=== PATIENT | female | born 1955 | race Caucasian/White ===

== ENCOUNTER 2020-04-06 18:50 | Inpatient (IN) | payer MEDICAID, MEDICARE, OTHER, SELFPAY ==
[~2020-04-06] VITALS: Ht 170.2 cm; Wt 96.2 kg
[2020-04-06] MEDS ORDERED: ONDANSETRON 2MG/ML, 2ML IVPush ONE (19:30)
[2020-04-06] MEDS ORDERED: MORPHINE SULFATE 4 MG/ML, 1ML ONE (19:30)
[2020-04-06] MEDS ORDERED: MORPHINE SULFATE 4 MG/ML, 1ML IVPush ONE (19:30)
[2020-04-06] MEDS ORDERED: ONDANSETRON 2MG/ML, 2ML ONE (19:31)
--- NOTE | 2020-04-06 19:47 | NUR ---
BREAK RN: PT. MEDICATED PER JUL. PT. ACTIVLY VOMITING DESPITE ANTI-NAUSEA MEDS. PT. REPORTS 03/11 CENTRAL ABD PAIN. SPO2 AND B/P MONITORS IN PLACE. AWARE OF PLAN FOR CT AND UA.
--- NOTE | 2020-04-06 19:59 | NUR ---
REPORT BACK TO DANNY ZAPIEN TO REASSUME CARE OF PT.
--- NOTE | 2020-04-06 20:20 | NUR ---
PT AMBULATED TO RESTROOM WITH STEADY AND SHUFFLING GAIT. ALL QUESTIONS ANSWERED AT THIS TIME
--- NOTE | 2020-04-06 20:48 | NUR ---
REPORT GIVEN TO RAJIV DELGADO.
[2020-04-06 20:56] LABS: MEAN CORPUSCULAR HGB CONC 32.4 g/dL (32.4-35.8); MEAN PLATELET VOLUME 10.9 fL (7.4-10.4); PLATELET COUNT 254 x10^3/uL (130-400); RED BLOOD COUNT 5.36 x10^6/uL (3.82-5.3)
--- NOTE | 2020-04-06 20:58 | NUR ---
Report rec'd, patient resting at this time, offers no complaints
[2020-04-06 20:59] LABS: ALANINE AMINOTRANSFERASE 98 U/L (12-78); ALBUMIN 4.4 g/dL (3.4-5.0); ANION GAP 6 mmol/L (5-15); CALCIUM 9.3 mg/dL (8.5-10.1); CHLORIDE 106 mmol/L (98-107); CREATININE 1.12 mg/dL (0.55-1.02)
[2020-04-06 21:02] LABS: ALKALINE PHOSPHATASE 135 U/L (45-117); BILIRUBIN,TOTAL 2.5 mg/dL (0.2-1.0); TOTAL PROTEIN 7.9 g/dL (6.4-8.2)
[2020-04-06 21:03] LABS: MICROSCOPIC INDICATED
--- NOTE | 2020-04-06 21:09 | NUR ---
CT PENDING CREATINE
[2020-04-06] MEDS ORDERED: SODIUM CHLORIDE 0.9% 1,000ML IVBOLUS ONE (21:30)
[2020-04-06] MEDS ORDERED: PROCHLORPERAZINE 5 MG/ML, 2ML ONE (21:35)
[2020-04-06] MEDS ORDERED: HYDROmorphone 1 MG/ML, 1ML INJ ONE (21:35)
[2020-04-06 21:37] LABS: MD YES
[2020-04-06 21:40] LABS: BAND#(MANUAL) 1.51 x10^3/uL; BANDS%(MANUAL) 7 % (0-7); BASOS#(MANUAL) 0.22 x10^3/uL (0-0.1); BASOS% (MANUAL) 1 % (0-1); LYMPH#(MANUAL) 0.65 x10^3/uL (1-3.4); LYMPHS% (MANUAL) 3 % (22-44); MONOS#(MANUAL) 1.08 x10^3/uL (0.3-2.7); MONOS% (MANUAL) 5 % (2-9); REACTIVE LYMPHS # (MANUAL) 0.22 x10^3/uL (0-0); REACTIVE LYMPHS % (MANUAL) 1 % (0-0); SEG#(MANUAL) 17.93 x10^3/uL (1.8-6.8); SEGS% (MANUAL) 83 % (42-75)
[2020-04-06 21:41] LABS: ANISOCYTOSIS 1+
[2020-04-06 21:43] LABS: <PLATELET ESTIMATE> ADEQUATE; LARGE PLATELETS 1+; OVALOCYTES 1+
--- NOTE | 2020-04-06 21:50 | NUR ---
Daughter contact nishant- Anjelica Piper [phone]
[2020-04-06] MEDS ORDERED: HYDROmorphone 1 MG/ML, 1ML INJ IV ONE (22:00)
[2020-04-06] MEDS ORDERED: PROCHLORPERAZINE 5 MG/ML, 2ML IVPush ONE (22:00)
[2020-04-06] MEDS ORDERED: PLEASE ENTER ALLERGIES MC SCH (22:00)
[2020-04-06] MEDS ORDERED: OMNIPAQUE 350 MG/ML, 100ML BOTTLE ONE (22:18)
[2020-04-06] MEDS ORDERED: PIPERACILLIN/TAZO/PMX 3.375GM 50 ML ONE (22:42)
[2020-04-06] MEDS ORDERED: PIPERACILLIN/TAZO/PMX 3.375GM 50 ML IVPB ONE (23:00)
[2020-04-07] VITALS (12 sets, daily range): BP systolic 95–183; BP diastolic 68–124
[2020-04-07] MEDS ORDERED: MORPHINE SULFATE 4 MG/ML, 1ML IVPush PRN
[2020-04-07] MEDS ORDERED: SODIUM CHLORIDE 0.9% 1,000 ML IV ONE
[2020-04-07] MEDS ORDERED: ONDANSETRON 2MG/ML, 2ML IVPush PRN ×2 (00:30)
[2020-04-07] MEDS ORDERED: HYDROcodone/APAP 5/325 TABLET PO PRN (00:30)
[2020-04-07] MEDS ORDERED: IBUPROFEN 600 MG TABLET PO PRN (00:30)
[2020-04-07] MEDS ORDERED: DOCUSATE 100 MG CAPSULE PO PRN (00:30)
--- NOTE | 2020-04-07 00:35 | NUR ---
Daughter called and updated rgarding patients being admitted
[2020-04-07] MEDS: SODIUM CHLORIDE 0.9% 1,000 ML IV SCH ×2 (01:14→10:34)
[2020-04-07] MEDS: HEPARIN 5,000 UNITS/ML, 1ML SQ SCH ×3 (01:14→16:16)
[2020-04-07] MEDS: morphine SULFATE 10 MG/ML, 1ML IVPush PRN ×4 (01:14→20:20)
[2020-04-07] MEDS: ENALAPRILAT 1.25 MG/ML, 2ML IVPush PRN ×2 (01:30→02:09)
[2020-04-07] MEDS: CIPROFLOXACIN/DEXT 200MG PMX 100 ML IVPB SCH ×2 (02:10→13:26)
[2020-04-07] MEDS: METRONIDAZOLE PMX 500MG/100ML 100 ML IV SCH ×2 (03:22→11:06)
[2020-04-07] MEDS ORDERED: LABETALOL 5MG/ML, 20ML IVPush PRN (04:00)
[2020-04-07] MEDS: MEROPENEM 1 GM in SODIUM CHLORIDE 0.9% 100 ML IV SCH ×2 (15:30→23:10)
[2020-04-08] MEDS: HEPARIN 5,000 UNITS/ML, 1ML SQ SCH ×3 (00:56→16:30)
[2020-04-08] MEDS: morphine SULFATE 10 MG/ML, 1ML IVPush PRN ×3 (01:15→11:06)
[2020-04-08 02:09] LABS: BASOPHILS % (AUTO) 0 % (0-1); EOSINOPHILS % (AUTO) 1 % (1-7); LYMPHOCYTES % (AUTO) 2 % (22-44); MEAN CORPUSCULAR HEMOGLOBIN 31.5 pg (27.0-34.8); MEAN CORPUSCULAR HGB CONC 32.8 g/dL (32.4-35.8); MEAN PLATELET VOLUME 10.8 fL (7.4-10.4); MONOCYTES % (AUTO) 6 % (2-9); NEUTROPHILS % (AUTO) 91 % (42-75); PLATELET COUNT 212 x10^3/uL (130-400); RED BLOOD COUNT 5.18 x10^6/uL (3.82-5.3); RED CELL DISTRIBUTION WIDTH 13.7 % (9.6-15.2)
[2020-04-08 02:16] LABS: ALANINE AMINOTRANSFERASE 113 U/L (12-78); ALBUMIN 3.2 g/dL (3.4-5.0); ANION GAP 9 mmol/L (5-15); CALCIUM 7.5 mg/dL (8.5-10.1); CHLORIDE 114 mmol/L (98-107); CREATININE 2.93 mg/dL (0.55-1.02); TRIGLYCERIDES 139 mg/dL (50-200); VLDL CHOLESTEROL 28 mg/dL (0-25)
[2020-04-08 02:18] LABS: ALKALINE PHOSPHATASE 125 U/L (45-117); BILIRUBIN,TOTAL 2.1 mg/dL (0.2-1.0); HDL CHOLESTEROL (DIRECT) 45 mg/dL (40-60); TOTAL PROTEIN 6.6 g/dL (6.4-8.2)
[2020-04-08 02:20] LABS: MD SCAN
[2020-04-08 02:44] LABS: CHOL/HDL RATIO 2.5; LDL/HDL RATIO 0.9 (0.5-3.0)
[2020-04-08 02:45] LABS: CHOLESTEROL, TOTAL 114 mg/dL (140-239); HDL CHOL % 39 % (28-40); LDL CHOLESTEROL,CALCULATED 41 mg/dL (54-169)
[2020-04-08] MEDS ORDERED: PANTOPRAZOLE 40 MG IV IVPush ONE (03:00)
[2020-04-08] MEDS: SODIUM BICARBONATE 8.4% 150 MEQ in DEXTROSE 5% 1,000 ML IV SCH ×2 (03:51→15:46)
[2020-04-08] MEDS: MEROPENEM 1 GM in SODIUM CHLORIDE 0.9% 100 ML IV SCH ×2 (06:28→18:31)
[2020-04-08 08:04] LABS: ANION GAP 10 mmol/L (5-15); CALCIUM 7.4 mg/dL (8.5-10.1); CHLORIDE 111 mmol/L (98-107)
[2020-04-08 08:06] LABS: CREATININE 3.53 mg/dL (0.55-1.02)
[2020-04-08] MEDS ORDERED: PANTOPRAZOLE 40 MG IV IVPush SCH (09:00)
[2020-04-08] MEDS ORDERED: SODIUM CHLORIDE 0.9% 1,000ML IVBOLUS ONE ×2 (09:00→09:30)
[2020-04-08] MEDS ORDERED: LIDOCAINE 1%, 20ML ONE (11:55)
[2020-04-08] MEDS ORDERED: PROPOFOL 10 MG/ML, 20ML ONE (11:56)
[2020-04-08] MEDS ORDERED: ROCURONIUM 10MG/ML,5ML ONE ×3 (11:56→17:33)
[2020-04-08] MEDS ORDERED: PROPOFOL 100 ML IV ONE (11:59)
[2020-04-08] MEDS ORDERED: NOREPINEPHRINE 1 MG/ML, 4ML ONE (12:09)
[2020-04-08] MEDS ORDERED: GLUCAGON 1 MG IM PRN (12:30)
[2020-04-08] MEDS ORDERED: PROPOFOL 100 ML IV PRN (12:30)
[2020-04-08] MEDS ORDERED: DEXTROSE 4 GM TAB.CHEW PO PRN (12:30)
[2020-04-08] MEDS ORDERED: BISACODYL 10 MG SUPP PR PRN (12:30)
[2020-04-08] MEDS ORDERED: NOREPINEPHRINE 8 MG in SODIUM CHLORIDE 0.9% 242 ML IV PRN (12:30)
[2020-04-08] MEDS ORDERED: LACTULOSE 20 GM/30 ML UDC NG PRN (12:30)
[2020-04-08] MEDS ORDERED: SENNA 176 MG/5 ML ORAL SOL NG PRN ×2 (12:30)
[2020-04-08] MEDS ORDERED: DEXTROSE 50%, 50ML SYRINGE IVPush PRN (12:30)
[2020-04-08] MEDS ORDERED: FENTANYL PF 100 MCG/2ML IVPush PRN (12:30)
[2020-04-08] MEDS ORDERED: LIDOCAINE-MPF 1%, 2ML ENDO PRN (12:30)
[2020-04-08] MEDS ORDERED: PHARMACY MAY ADJ FOR RENAL FX MC SCH (12:30)
[2020-04-08] MEDS ORDERED: DOCUSATE 50 MG/5 ML, 10ML UDC NG PRN (13:00)
[2020-04-08] MEDS: FENTANYL PF 1,000 MCG in SODIUM CHLORIDE 0.9% 80 ML IV PRN (13:20)
[2020-04-08] MEDS: PANTOPRAZOLE 40 MG IV IV SCH (13:30)
[2020-04-08] MEDS: NOREPINEPHRINE 8 MG in SODIUM CHLORIDE 0.9% 242 ML IV PRN (15:19)
[2020-04-08] MEDS ORDERED: CALCIUM GLUCONATE IV ONE (15:30)
[2020-04-08] MEDS ORDERED: CALCIUM GLUCONATE 4.6 MEQ/10 ML IVPush ONE (16:00)
[2020-04-08] MEDS ORDERED: MIDAZOLAM 1 MG/ML, 2ML ONE ×2 (16:01→17:45)
[2020-04-08] MEDS ORDERED: FENTANYL PF 100 MCG/2ML ONE (16:24)
[2020-04-08] MEDS ORDERED: SODIUM BICARBONATE 1 MEQ/ML, 50ML VIAL ONE (17:11)
[2020-04-08] MEDS ORDERED: CALCIUM CHLORIDE 10%, 10ML SYR ONE (17:36)
[2020-04-08 18:39] LABS: BASOPHILS % (AUTO) 0 % (0-1); EOSINOPHILS % (AUTO) 0 % (1-7); LYMPHOCYTES % (AUTO) 4 % (22-44); MEAN CORPUSCULAR HEMOGLOBIN 31.5 pg (27.0-34.8); MEAN CORPUSCULAR HGB CONC 32.5 g/dL (32.4-35.8); MEAN PLATELET VOLUME 10.5 fL (7.4-10.4); MONOCYTES % (AUTO) 7 % (2-9); NEUTROPHILS % (AUTO) 89 % (42-75); PLATELET COUNT 183 x10^3/uL (130-400); RED BLOOD COUNT 4.83 x10^6/uL (3.82-5.3); RED CELL DISTRIBUTION WIDTH 13.9 % (9.6-15.2)
[2020-04-08 18:40] LABS: MD NO
[2020-04-08 18:51] LABS: ALANINE AMINOTRANSFERASE 113 U/L (12-78); ALBUMIN 2.3 g/dL (3.4-5.0); ANION GAP 10 mmol/L (5-15); CALCIUM 7.5 mg/dL (8.5-10.1); CHLORIDE 115 mmol/L (98-107); CREATININE 3.98 mg/dL (0.55-1.02)
[2020-04-08 18:54] LABS: ALKALINE PHOSPHATASE 94 U/L (45-117); BILIRUBIN,TOTAL 1.3 mg/dL (0.2-1.0); TOTAL PROTEIN 5.2 g/dL (6.4-8.2)
[2020-04-08] MEDS: VASOPRESSIN 20 UNIT in SODIUM CHLORIDE 0.9% 99 ML IV PRN (21:30)
[2020-04-08] MEDS: SODIUM CHLORIDE FLUSH 10ML SYR IVF SCH (21:31)
[2020-04-08] MEDS: DEXMEDETOMIDINE 400 MCG in SODIUM CHLORIDE 0.9% 96 ML IV PRN (22:58)
[2020-04-09] MEDS: HEPARIN 5,000 UNITS/ML, 1ML SQ SCH ×3 (00:53→16:40)
[2020-04-09] MEDS: FENTANYL PF 1,000 MCG in SODIUM CHLORIDE 0.9% 80 ML IV PRN ×3 (02:49→20:38)
[2020-04-09] MEDS: DEXMEDETOMIDINE 400 MCG in SODIUM CHLORIDE 0.9% 96 ML IV PRN ×5 (03:00→20:38)
[2020-04-09 04:31] LABS: ALANINE AMINOTRANSFERASE 114 U/L (12-78); ALBUMIN 2.3 g/dL (3.4-5.0); ANION GAP 10 mmol/L (5-15); BILIRUBIN, DIRECT 0.8 mg/dL (0.1-0.2); CALCIUM 6.7 mg/dL (8.5-10.1); CHLORIDE 111 mmol/L (98-107); CREATININE 4.77 mg/dL (0.55-1.02); MEAN CORPUSCULAR HEMOGLOBIN 31.5 pg (27.0-34.8); MEAN CORPUSCULAR HGB CONC 32.7 g/dL (32.4-35.8); PLATELET COUNT 177 x10^3/uL (130-400); RED BLOOD COUNT 4.89 x10^6/uL (3.82-5.3); RED CELL DISTRIBUTION WIDTH 13.9 % (9.6-15.2)
[2020-04-09 04:33] LABS: ALKALINE PHOSPHATASE 96 U/L (45-117); BILIRUBIN,INDIRECT 0.5 mg/dL (0.0-2.0); BILIRUBIN,TOTAL 1.3 mg/dL (0.2-1.0); TOTAL PROTEIN 5.4 g/dL (6.4-8.2)
[2020-04-09] MEDS: NOREPINEPHRINE 8 MG in SODIUM CHLORIDE 0.9% 242 ML IV PRN ×2 (04:36→11:44)
[2020-04-09] MEDS: VASOPRESSIN 20 UNIT in SODIUM CHLORIDE 0.9% 99 ML IV PRN ×2 (04:36→12:09)
[2020-04-09 05:39] LABS: MD YES
[2020-04-09 05:41] LABS: <PLATELET ESTIMATE> ADEQUATE; BAND#(MANUAL) 2.62 x10^3/uL; BANDS%(MANUAL) 22 % (0-7); LARGE PLATELETS 1+; LYMPH#(MANUAL) 0.71 x10^3/uL (1-3.4); LYMPHS% (MANUAL) 6 % (22-44); MONOS#(MANUAL) 0.95 x10^3/uL (0.3-2.7); MONOS% (MANUAL) 8 % (2-9); SEG#(MANUAL) 7.62 x10^3/uL (1.8-6.8); SEGS% (MANUAL) 64 % (42-75)
[2020-04-09] MEDS: MEROPENEM 1 GM in SODIUM CHLORIDE 0.9% 100 ML IV SCH ×2 (05:56→17:25)
[2020-04-09 06:17] LABS: <RBC MORPHOLOGY> NORMAL
[2020-04-09] MEDS ORDERED: CALCIUM CHLORIDE 13.6 MEQ in SODIUM CHLORIDE 0.9% 100 ML IV ONE (06:30)
[2020-04-09] MEDS ORDERED: DILTIAZEM 5 MG/ML, 5ML IVPush ONE ×2 (07:00→15:00)
[2020-04-09] MEDS ORDERED: ONDANSETRON 2MG/ML, 2ML IV PRN (08:00)
[2020-04-09] MEDS: PANTOPRAZOLE 40 MG IV IV SCH (08:50)
[2020-04-09] MEDS: SODIUM CHLORIDE FLUSH 10ML SYR IVF SCH ×2 (08:51→19:36)
[2020-04-09] MEDS ORDERED: LACTATED RINGERS 500 ML IVBOLUS ONE (09:00)
[2020-04-09] MEDS ORDERED: ADENOSINE 6 MG/2 ML IVPush ONE ×2 (10:30→11:00)
[2020-04-09] MEDS: INSULIN LISPRO 100 UNITS/ML, PEN SQ-INSULIN SCH ×3 (11:00→19:43)
[2020-04-09] MEDS ORDERED: ACETAMINOPHEN 650 MG SUPP ONE (12:19)
[2020-04-09] MEDS: ACETAMINOPHEN 650 MG SUPP PR PRN ×2 (12:20→19:36)
[2020-04-09] MEDS ORDERED: METOPROLOL 1 MG/ML, 5ML IVPush STA (15:43)
[2020-04-09] MEDS: PHENYLEPHRINE 50 MG in SODIUM CHLORIDE 0.9% 245 ML IV PRN (16:04)
[2020-04-10] MEDS: PHENYLEPHRINE 50 MG in SODIUM CHLORIDE 0.9% 245 ML IV PRN ×2 (01:16→13:19)
[2020-04-10] MEDS: HEPARIN 5,000 UNITS/ML, 1ML SQ SCH ×3 (01:19→16:51)
[2020-04-10] MEDS: DEXMEDETOMIDINE 400 MCG in SODIUM CHLORIDE 0.9% 96 ML IV PRN ×4 (01:40→18:22)
[2020-04-10] MEDS: VASOPRESSIN 20 UNIT in SODIUM CHLORIDE 0.9% 99 ML IV PRN ×2 (03:19→15:30)
[2020-04-10 04:00] VITALS: BP 96/52
[2020-04-10 04:16] LABS: MEAN CORPUSCULAR HEMOGLOBIN 31.6 pg (27.0-34.8); MEAN CORPUSCULAR HGB CONC 32.6 g/dL (32.4-35.8); MEAN PLATELET VOLUME 10.7 fL (7.4-10.4); PLATELET COUNT 162 x10^3/uL (130-400); RED BLOOD COUNT 4.58 x10^6/uL (3.82-5.3); RED CELL DISTRIBUTION WIDTH 14.2 % (9.6-15.2)
[2020-04-10 04:26] LABS: CALCIUM 7.1 mg/dL (8.5-10.1); CHLORIDE 116 mmol/L (98-107)
[2020-04-10 04:32] LABS: ANION GAP 9 mmol/L (5-15); CREATININE 4.83 mg/dL (0.55-1.02)
[2020-04-10] MEDS: ACETAMINOPHEN 650 MG SUPP PR PRN ×3 (05:01→16:51)
[2020-04-10] MEDS: MEROPENEM 1 GM in SODIUM CHLORIDE 0.9% 100 ML IV SCH (05:01)
[2020-04-10] MEDS: INSULIN LISPRO 100 UNITS/ML, PEN SQ-INSULIN SCH ×4 (05:02→21:00)
[2020-04-10 05:46] LABS: MD YES
[2020-04-10 05:50] LABS: BAND#(MANUAL) 0.85 x10^3/uL; BANDS%(MANUAL) 6 % (0-7); LYMPH#(MANUAL) 0.42 x10^3/uL (1-3.4); LYMPHS% (MANUAL) 3 % (22-44); METAMYELOCYTES# (MANUAL) 0.42 x10^3/uL (0-0); METAMYELOCYTES% (MANUAL) 3 % (0-1); MONOS% (MANUAL) 17 % (2-9); SEG#(MANUAL) 10.01 x10^3/uL (1.8-6.8); SEGS% (MANUAL) 71 % (42-75)
[2020-04-10 05:51] LABS: <PLATELET ESTIMATE> ADEQUATE; LARGE PLATELETS 1+
[2020-04-10 05:52] LABS: PMNS WITH VACUOLES 1+; POLYCHROMASIA 1+
[2020-04-10] MEDS: FENTANYL PF 1,000 MCG in SODIUM CHLORIDE 0.9% 80 ML IV PRN ×3 (06:31→18:22)
[2020-04-10] MEDS: PANTOPRAZOLE 40 MG IV IV SCH (08:40)
[2020-04-10] MEDS: SODIUM CHLORIDE FLUSH 10ML SYR IVF SCH ×2 (08:41→21:33)
[2020-04-10] MEDS ORDERED: ALBUMIN HUMAN 25% 200 ML ONE (15:12)
[2020-04-10] MEDS: NOREPINEPHRINE 8 MG in SODIUM CHLORIDE 0.9% 242 ML IV PRN (15:23)
[2020-04-10] MEDS ORDERED: ACETAMINOPHEN 650 MG/20.3 ML UDC ONE (15:35)
[2020-04-10] MEDS: ALBUMIN HUMAN 25% 100 ML IV PRN (15:42)
[2020-04-10] MEDS: MEROPENEM 500 MG in SODIUM CHLORIDE 0.9% 100 ML IV SCH (18:21)
[2020-04-10] MEDS ORDERED: SODIUM CHLORIDE 0.9% IV SCH (20:00)
[2020-04-10] MEDS ORDERED: MEROPENEM IV SCH (20:00)
[2020-04-10] MEDS ORDERED: MEROPENEM 500 MG in SODIUM CHLORIDE 0.9% 100 ML IV SCH (20:00)
[2020-04-11] MEDS: HEPARIN 5,000 UNITS/ML, 1ML SQ SCH ×3 (01:28→17:24)
[2020-04-11 04:00] VITALS: BP 102/51
[2020-04-11] MEDS: DEXMEDETOMIDINE 400 MCG in SODIUM CHLORIDE 0.9% 96 ML IV PRN (04:28)
[2020-04-11] MEDS: PHENYLEPHRINE 50 MG in SODIUM CHLORIDE 0.9% 245 ML IV PRN ×2 (04:29→08:44)
[2020-04-11] MEDS: NOREPINEPHRINE 8 MG in SODIUM CHLORIDE 0.9% 242 ML IV PRN ×2 (04:29→14:06)
[2020-04-11] MEDS: FENTANYL PF 1,000 MCG in SODIUM CHLORIDE 0.9% 80 ML IV PRN ×2 (04:29→17:33)
[2020-04-11] MEDS: MEROPENEM 500 MG in SODIUM CHLORIDE 0.9% 100 ML IV SCH ×2 (05:47→20:45)
[2020-04-11 06:18] LABS: CHLORIDE 114 mmol/L (98-107)
[2020-04-11 06:22] LABS: ANION GAP 8 mmol/L (5-15); CALCIUM 6.7 mg/dL (8.5-10.1); CREATININE 4.57 mg/dL (0.55-1.02); TRIGLYCERIDES 240 mg/dL (50-200)
[2020-04-11 06:39] LABS: MEAN CORPUSCULAR HEMOGLOBIN 31.4 pg (27.0-34.8); MEAN CORPUSCULAR HGB CONC 32.8 g/dL (32.4-35.8); MEAN PLATELET VOLUME 10.9 fL (7.4-10.4); PLATELET COUNT 148 x10^3/uL (130-400); RED BLOOD COUNT 4.04 x10^6/uL (3.82-5.3); RED CELL DISTRIBUTION WIDTH 14.2 % (9.6-15.2)
[2020-04-11] MEDS: INSULIN LISPRO 100 UNITS/ML, PEN SQ-INSULIN SCH ×4 (07:00→20:51)
[2020-04-11 07:29] LABS: MD YES
[2020-04-11 07:31] LABS: <RBC MORPHOLOGY> NORMAL; BAND#(MANUAL) 3.42 x10^3/uL; BANDS%(MANUAL) 29 % (0-7); LYMPH#(MANUAL) 0.47 x10^3/uL (1-3.4); LYMPHS% (MANUAL) 4 % (22-44); METAMYELOCYTES# (MANUAL) 0.35 x10^3/uL (0-0); METAMYELOCYTES% (MANUAL) 3 % (0-1); MONOS#(MANUAL) 0.59 x10^3/uL (0.3-2.7); MONOS% (MANUAL) 5 % (2-9); SEG#(MANUAL) 6.96 x10^3/uL (1.8-6.8); SEGS% (MANUAL) 59 % (42-75)
[2020-04-11 07:32] LABS: <PLATELET ESTIMATE> ADEQUATE; LARGE PLATELETS 1+; PMNS WITH VACUOLES 1+
[2020-04-11] MEDS ORDERED: TPN PER PHARMACY MC PRN (08:00)
[2020-04-11] MEDS: PANTOPRAZOLE 40 MG IV IV SCH (08:32)
[2020-04-11] MEDS: ACETAMINOPHEN 650 MG SUPP PR PRN (08:33)
[2020-04-11] MEDS: SODIUM CHLORIDE FLUSH 10ML SYR IVF SCH ×2 (08:44→20:45)
[2020-04-11] MEDS ORDERED: CALCIUM CHLORIDE 27.2 MEQ in SODIUM CHLORIDE 0.9% 100 ML IV ONE (12:30)
[2020-04-11] MEDS: MIDAZOLAM HCL 50 MG in SODIUM CHLORIDE 0.9% 40 ML IV PRN (12:43)
[2020-04-11] MEDS: FILTER, DISP 1.2 MICRON FOR TPN/PVN IV PRN (16:02)
[2020-04-11] MEDS ORDERED: AMINO ACID 10% IV SCH (17:00)
[2020-04-11] MEDS ORDERED: FAT EMUL IV SCH (17:00)
[2020-04-11] MEDS ORDERED: DEXTROSE 70% IV SCH (17:00)
[2020-04-11] MEDS ORDERED: SMOF TPN IV SCH (17:00)
[2020-04-11] MEDS ORDERED: [UNRECOGNIZED DRUG - OTHER] IV SCH (17:00)
[2020-04-11] MEDS: NOREPINEPHRINE 32 MG in SODIUM CHLORIDE 0.9% 218 ML IV PRN (20:45)
[2020-04-11] MEDS: INSULIN REGULAR LOW DOSE Q6H X 48HRS SQ-INSULIN SCH (20:52)
[2020-04-12] MEDS: HEPARIN 5,000 UNITS/ML, 1ML SQ SCH ×3 (01:17→16:51)
[2020-04-12] MEDS: FENTANYL PF 1,000 MCG in SODIUM CHLORIDE 0.9% 80 ML IV PRN ×2 (01:40→12:13)
[2020-04-12] MEDS: INSULIN REGULAR LOW DOSE Q6H X 48HRS SQ-INSULIN SCH ×2 (02:49→09:20)
[2020-04-12 04:00] VITALS: BP 91/53
[2020-04-12 05:34] LABS: MEAN CORPUSCULAR HEMOGLOBIN 31.1 pg (27.0-34.8); MEAN CORPUSCULAR HGB CONC 32.8 g/dL (32.4-35.8); MEAN PLATELET VOLUME 11.1 fL (7.4-10.4); PLATELET COUNT 151 x10^3/uL (130-400); RED BLOOD COUNT 3.99 x10^6/uL (3.82-5.3)
[2020-04-12 05:48] LABS: CHLORIDE 108 mmol/L (98-107)
[2020-04-12 06:00] LABS: ALANINE AMINOTRANSFERASE 123 U/L (12-78); ALBUMIN 1.8 g/dL (3.4-5.0); ALKALINE PHOSPHATASE 96 U/L (45-117); ANION GAP 10 mmol/L (5-15); BILIRUBIN,TOTAL 1.5 mg/dL (0.2-1.0); CALCIUM 7.4 mg/dL (8.5-10.1); CREATININE 4.34 mg/dL (0.55-1.02); PREALBUMIN 4.7 mg/dL (20.0-40.0); TOTAL PROTEIN 5.1 g/dL (6.4-8.2)
[2020-04-12 06:06] LABS: MD YES
[2020-04-12 06:08] LABS: BAND#(MANUAL) 3.62 x10^3/uL; BANDS%(MANUAL) 20 % (0-7); LYMPH#(MANUAL) 1.09 x10^3/uL (1-3.4); LYMPHS% (MANUAL) 6 % (22-44); METAMYELOCYTES# (MANUAL) 0.36 x10^3/uL (0-0); METAMYELOCYTES% (MANUAL) 2 % (0-1); MONOS#(MANUAL) 0.54 x10^3/uL (0.3-2.7); MONOS% (MANUAL) 3 % (2-9); MYELOCYTES# (MANUAL) 0.91 x10^3/uL (0-0); MYELOCYTES% (MANUAL) 5 % (0-0); SEG#(MANUAL) 11.58 x10^3/uL (1.8-6.8); SEGS% (MANUAL) 64 % (42-75)
[2020-04-12 06:09] LABS: POLYCHROMASIA 1+
[2020-04-12 06:10] LABS: PMNS WITH VACUOLES 1+; TEAR DROPS 1+; TOXIC GRAN 1+
[2020-04-12 06:11] LABS: <PLATELET ESTIMATE> ADEQUATE; LARGE PLATELETS 1+
[2020-04-12] MEDS: MEROPENEM 500 MG in SODIUM CHLORIDE 0.9% 100 ML IV SCH ×2 (09:22→20:52)
[2020-04-12] MEDS: SODIUM CHLORIDE FLUSH 10ML SYR IVF SCH ×2 (09:23→20:52)
[2020-04-12] MEDS: PANTOPRAZOLE 40 MG IV IV SCH (09:23)
[2020-04-12] MEDS: INSULIN LISPRO 100 UNITS/ML, PEN SQ-INSULIN SCH ×3 (09:23→21:54)
[2020-04-12] MEDS: ALBUMIN HUMAN 25% 100 ML IV PRN (14:14)
[2020-04-12] MEDS ORDERED: ALBUMIN HUMAN 25% 50 ML IV PRN (14:30)
[2020-04-12] MEDS: FILTER, DISP 1.2 MICRON FOR TPN/PVN IV PRN (16:51)
[2020-04-12] MEDS ORDERED: DEXTROSE 70% IV SCH (17:00)
[2020-04-12] MEDS ORDERED: FAT EMUL IV SCH (17:00)
[2020-04-12] MEDS ORDERED: [UNRECOGNIZED DRUG - OTHER] IV SCH (17:00)
[2020-04-12] MEDS ORDERED: AMINO ACID 10% IV SCH (17:00)
[2020-04-12] MEDS ORDERED: SMOF TPN IV SCH (17:00)
[2020-04-12] MEDS: MIDAZOLAM HCL 50 MG in SODIUM CHLORIDE 0.9% 40 ML IV PRN (17:04)
[2020-04-12] MEDS: NOREPINEPHRINE 32 MG in SODIUM CHLORIDE 0.9% 218 ML IV PRN (18:08)
[2020-04-13] MEDS: HEPARIN 5,000 UNITS/ML, 1ML SQ SCH ×3 (00:09→17:14)
[2020-04-13] MEDS: INSULIN LISPRO 100 UNITS/ML, PEN SQ-INSULIN SCH ×4 (04:00→21:46)
[2020-04-13 04:14] LABS: ANION GAP 9 mmol/L (5-15); CALCIUM 7.2 mg/dL (8.5-10.1); CHLORIDE 106 mmol/L (98-107); CREATININE 4.08 mg/dL (0.55-1.02)
[2020-04-13 04:19] LABS: MEAN CORPUSCULAR HEMOGLOBIN 31.1 pg (27.0-34.8); MEAN CORPUSCULAR HGB CONC 32.7 g/dL (32.4-35.8); MEAN PLATELET VOLUME 11.1 fL (7.4-10.4); PLATELET COUNT 129 x10^3/uL (130-400); RED BLOOD COUNT 3.63 x10^6/uL (3.82-5.3)
[2020-04-13 05:00] VITALS: BP 99/53
[2020-04-13] MEDS: ACETAMINOPHEN 650 MG SUPP PR PRN ×2 (05:50→21:35)
[2020-04-13 05:51] LABS: MD YES
[2020-04-13 05:53] LABS: BAND#(MANUAL) 2.52 x10^3/uL; BANDS%(MANUAL) 13 % (0-7); EOS#(MANUAL) 0.19 x10^3/uL (0.0-0.4); EOS% (MANUAL) 1 % (1-7); LYMPH#(MANUAL) 0.78 x10^3/uL (1-3.4); LYMPHS% (MANUAL) 4 % (22-44); METAMYELOCYTES# (MANUAL) 0.78 x10^3/uL (0-0); METAMYELOCYTES% (MANUAL) 4 % (0-1); MONOS#(MANUAL) 0.39 x10^3/uL (0.3-2.7); MONOS% (MANUAL) 2 % (2-9); MYELOCYTES# (MANUAL) 0.58 x10^3/uL (0-0); MYELOCYTES% (MANUAL) 3 % (0-0); SEG#(MANUAL) 14.16 x10^3/uL (1.8-6.8); SEGS% (MANUAL) 73 % (42-75)
[2020-04-13 05:54] LABS: <PLATELET ESTIMATE> ADEQUATE; LARGE PLATELETS 1+; POLYCHROMASIA 1+
[2020-04-13 05:55] LABS: PMNS WITH VACUOLES 1+; TOXIC GRAN 1+
[2020-04-13] MEDS: MIDAZOLAM HCL 50 MG in SODIUM CHLORIDE 0.9% 40 ML IV PRN ×2 (06:19→17:22)
[2020-04-13] MEDS: FENTANYL PF 1,000 MCG in SODIUM CHLORIDE 0.9% 80 ML IV PRN ×3 (06:20→14:03)
[2020-04-13] MEDS ORDERED: VANCOMYCIN PER PHARMACY MC PRN (06:30)
[2020-04-13] MEDS ORDERED: PHARMACOKINETIC MONITORING MC PRN (08:00)
[2020-04-13] MEDS ORDERED: VANCOMYCIN 1,500 MG in SODIUM CHLORIDE 0.9% 250 ML IV ONE (08:00)
[2020-04-13] MEDS: MEROPENEM 500 MG in SODIUM CHLORIDE 0.9% 100 ML IV SCH ×2 (09:26→21:16)
[2020-04-13] MEDS ORDERED: CALCIUM CHLORIDE 13.6 MEQ in SODIUM CHLORIDE 0.9% 100 ML IV ONE (10:30)
[2020-04-13] MEDS: PANTOPRAZOLE 40 MG IV IV SCH (10:57)
[2020-04-13] MEDS: SODIUM CHLORIDE FLUSH 10ML SYR IVF SCH ×2 (10:58→21:15)
[2020-04-13] MEDS: NOREPINEPHRINE 32 MG in SODIUM CHLORIDE 0.9% 218 ML IV PRN (12:05)
[2020-04-13] MEDS: ALBUMIN HUMAN 25% 100 ML IV PRN (13:06)
[2020-04-13] MEDS ORDERED: METOPROLOL 1 MG/ML, 5ML ONE (16:07)
[2020-04-13] MEDS ORDERED: METOPROLOL 1 MG/ML, 5ML IVPush ONE (16:30)
[2020-04-13] MEDS ORDERED: DEXTROSE 70% IV SCH (17:00)
[2020-04-13] MEDS ORDERED: [UNRECOGNIZED DRUG - OTHER] IV SCH (17:00)
[2020-04-13] MEDS ORDERED: SMOF TPN IV SCH (17:00)
[2020-04-13] MEDS ORDERED: AMINO ACID 10% IV SCH (17:00)
[2020-04-13] MEDS ORDERED: FAT EMUL IV SCH (17:00)
[2020-04-13] MEDS: FILTER, DISP 1.2 MICRON FOR TPN/PVN IV PRN (17:13)
[2020-04-13] MEDS: AMIODARONE 450 MG in DEXTROSE 5% 241 ML IV PRN (17:43)
[2020-04-13] MEDS: FILTER 0.22 MICRON IV PRN (17:43)
[2020-04-13] MEDS: FENTANYL PF 2,500 MCG in SODIUM CHLORIDE 0.9% 200 ML IV PRN (21:15)
[2020-04-14] MEDS: HEPARIN 5,000 UNITS/ML, 1ML SQ SCH ×3 (00:45→16:30)
[2020-04-14] MEDS: AMIODARONE 450 MG in DEXTROSE 5% 241 ML IV PRN ×4 (01:16→20:59)
[2020-04-14] MEDS: INSULIN LISPRO 100 UNITS/ML, PEN SQ-INSULIN SCH ×4 (05:21→20:24)
[2020-04-14 05:29] VITALS: BP 93/66
[2020-04-14 05:45] LABS: MEAN CORPUSCULAR HEMOGLOBIN 30.9 pg (27.0-34.8); MEAN CORPUSCULAR HGB CONC 32.8 g/dL (32.4-35.8); MEAN PLATELET VOLUME 11.9 fL (7.4-10.4); PLATELET COUNT 151 x10^3/uL (130-400); RED BLOOD COUNT 3.94 x10^6/uL (3.82-5.3); RED CELL DISTRIBUTION WIDTH 14.1 % (9.6-15.2)
[2020-04-14 06:12] LABS: ANION GAP 11 mmol/L (5-15); CHLORIDE 103 mmol/L (98-107)
[2020-04-14 06:14] LABS: CREATININE 3.78 mg/dL (0.55-1.02); TRIGLYCERIDES 295 mg/dL (50-200)
[2020-04-14 06:38] LABS: MD YES
[2020-04-14 06:40] LABS: BAND#(MANUAL) 2.78 x10^3/uL; BANDS%(MANUAL) 10 % (0-7); LYMPH#(MANUAL) 0.83 x10^3/uL (1-3.4); LYMPHS% (MANUAL) 3 % (22-44); METAMYELOCYTES# (MANUAL) 1.39 x10^3/uL (0-0); METAMYELOCYTES% (MANUAL) 5 % (0-1); MONOS#(MANUAL) 2.22 x10^3/uL (0.3-2.7); MONOS% (MANUAL) 8 % (2-9); MYELOCYTES# (MANUAL) 1.11 x10^3/uL (0-0); MYELOCYTES% (MANUAL) 4 % (0-0); SEG#(MANUAL) 19.46 x10^3/uL (1.8-6.8); SEGS% (MANUAL) 70 % (42-75)
[2020-04-14 06:41] LABS: <PLATELET ESTIMATE> ADEQUATE; LARGE PLATELETS 1+; POLYCHROMASIA 1+; TOXIC GRAN 1+
[2020-04-14] MEDS ORDERED: INSULIN REGULAR LOW DOSE QDAY SQ-INSULIN SCH (07:30)
[2020-04-14] MEDS ORDERED: AMIODARONE 150 MG in DEXTROSE 5% 100 ML IV ONE (08:30)
[2020-04-14] MEDS: MIDAZOLAM HCL 50 MG in SODIUM CHLORIDE 0.9% 40 ML IV PRN ×2 (08:57→16:51)
[2020-04-14] MEDS: MEROPENEM 500 MG in SODIUM CHLORIDE 0.9% 100 ML IV SCH ×2 (08:57→20:23)
[2020-04-14] MEDS: NOREPINEPHRINE 32 MG in SODIUM CHLORIDE 0.9% 218 ML IV PRN (08:57)
[2020-04-14] MEDS: SODIUM CHLORIDE FLUSH 10ML SYR IVF SCH ×2 (09:14→20:23)
[2020-04-14] MEDS: PANTOPRAZOLE 40 MG IV IV SCH (09:14)
[2020-04-14] MEDS: ACETAMINOPHEN 650 MG SUPP PR PRN ×2 (10:54→23:40)
[2020-04-14] MEDS ORDERED: VANCOMYCIN 1,500 MG in SODIUM CHLORIDE 0.9% 250 ML IV ONE (12:00)
[2020-04-14] MEDS: FENTANYL PF 2,500 MCG in SODIUM CHLORIDE 0.9% 200 ML IV PRN (12:03)
[2020-04-14] MEDS ORDERED: DIGOXIN 0.25 MG/ML, 2ML IVPush ONE ×2 (13:30→16:00)
[2020-04-14] MEDS ORDERED: LIDOCAINE 1%, 10ML ONE (13:57)
[2020-04-14] MEDS: FILTER, DISP 1.2 MICRON FOR TPN/PVN IV PRN (16:53)
[2020-04-14] MEDS ORDERED: AMINO ACID 10% IV SCH ×2 (17:00)
[2020-04-14] MEDS ORDERED: [UNRECOGNIZED DRUG - OTHER] IV SCH ×2 (17:00)
[2020-04-14] MEDS ORDERED: FAT EMUL IV SCH ×2 (17:00)
[2020-04-14] MEDS ORDERED: SMOF TPN IV SCH ×2 (17:00)
[2020-04-14] MEDS ORDERED: DEXTROSE 70% IV SCH ×2 (17:00)
[2020-04-14 20:25] LABS: CELLS COUNTED 992
[2020-04-15] MEDS: HEPARIN 5,000 UNITS/ML, 1ML SQ SCH ×3 (00:28→16:39)
[2020-04-15] MEDS: INSULIN LISPRO 100 UNITS/ML, PEN SQ-INSULIN SCH ×4 (04:03→23:16)
[2020-04-15] MEDS: NOREPINEPHRINE 32 MG in SODIUM CHLORIDE 0.9% 218 ML IV PRN ×2 (04:05→23:14)
[2020-04-15 04:26] LABS: MEAN CORPUSCULAR HGB CONC 32.8 g/dL (32.4-35.8); MEAN PLATELET VOLUME 12.2 fL (7.4-10.4); PLATELET COUNT 183 x10^3/uL (130-400); RED BLOOD COUNT 3.79 x10^6/uL (3.82-5.3); RED CELL DISTRIBUTION WIDTH 14.2 % (9.6-15.2)
[2020-04-15 04:31] LABS: ANION GAP 12 mmol/L (5-15); CHLORIDE 100 mmol/L (98-107); CREATININE 4.73 mg/dL (0.55-1.02)
[2020-04-15] MEDS: AMIODARONE 450 MG in DEXTROSE 5% 241 ML IV PRN ×3 (04:33→20:52)
[2020-04-15 05:00] VITALS: BP 108/68
[2020-04-15 05:32] LABS: MD YES
[2020-04-15 05:39] LABS: BAND#(MANUAL) 5.73 x10^3/uL; BANDS%(MANUAL) 21 % (0-7); EOS#(MANUAL) 0.27 x10^3/uL (0.0-0.4); EOS% (MANUAL) 1 % (1-7); LYMPH#(MANUAL) 2.73 x10^3/uL (1-3.4); LYMPHS% (MANUAL) 10 % (22-44); METAMYELOCYTES# (MANUAL) 1.09 x10^3/uL (0-0); METAMYELOCYTES% (MANUAL) 4 % (0-1); MONOS#(MANUAL) 1.37 x10^3/uL (0.3-2.7); MONOS% (MANUAL) 5 % (2-9); MYELOCYTES# (MANUAL) 1.64 x10^3/uL (0-0); MYELOCYTES% (MANUAL) 6 % (0-0); SEG#(MANUAL) 14.47 x10^3/uL (1.8-6.8); SEGS% (MANUAL) 53 % (42-75)
[2020-04-15 05:41] LABS: POLYCHROMASIA 1+
[2020-04-15 05:42] LABS: <PLATELET ESTIMATE> ADEQUATE; LARGE PLATELETS 1+
[2020-04-15] MEDS: MICAFUNGIN 100 MG in SODIUM CHLORIDE 0.9% 100 ML IV SCH (06:45)
[2020-04-15] MEDS: FENTANYL PF 2,500 MCG in SODIUM CHLORIDE 0.9% 200 ML IV PRN ×2 (06:47→22:24)
[2020-04-15] MEDS ORDERED: MAGNESIUM SULFATE PMX 2GM/50ML 50 ML IV ONE (07:00)
[2020-04-15] MEDS: PANTOPRAZOLE 40 MG IV IV SCH (08:47)
[2020-04-15] MEDS: SODIUM CHLORIDE FLUSH 10ML SYR IVF SCH ×2 (08:48→20:49)
[2020-04-15] MEDS: MEROPENEM 500 MG in SODIUM CHLORIDE 0.9% 100 ML IV SCH ×2 (10:31→20:49)
[2020-04-15] MEDS: MIDAZOLAM HCL 50 MG in SODIUM CHLORIDE 0.9% 40 ML IV PRN ×3 (10:33→22:24)
[2020-04-15] MEDS ORDERED: SMOF TPN IV SCH (17:00)
[2020-04-15] MEDS ORDERED: FAT EMUL IV SCH (17:00)
[2020-04-15] MEDS ORDERED: [UNRECOGNIZED DRUG - OTHER] IV SCH (17:00)
[2020-04-15] MEDS ORDERED: DEXTROSE 70% IV SCH (17:00)
[2020-04-15] MEDS ORDERED: AMINO ACID 10% IV SCH (17:00)
[2020-04-15] MEDS ORDERED: FILTER, DISP 1.2 MICRON FOR TPN/PVN IV PRN (17:00)
[2020-04-16] MEDS: HEPARIN 5,000 UNITS/ML, 1ML SQ SCH ×3 (00:14→16:37)
[2020-04-16] MEDS: AMIODARONE 450 MG in DEXTROSE 5% 241 ML IV PRN ×2 (04:22→19:37)
[2020-04-16 04:41] LABS: ANION GAP 10 mmol/L (5-15); CALCIUM 7.8 mg/dL (8.5-10.1); CHLORIDE 106 mmol/L (98-107)
[2020-04-16 04:44] LABS: CREATININE 3.65 mg/dL (0.55-1.02); VANCOMYCIN,RANDOM 21.3 mcg/mL
[2020-04-16 05:00] VITALS: BP 122/63
[2020-04-16] MEDS: INSULIN LISPRO 100 UNITS/ML, PEN SQ-INSULIN SCH ×4 (05:08→23:00)
[2020-04-16 05:15] LABS: MEAN CORPUSCULAR HEMOGLOBIN 30.8 pg (27.0-34.8); MEAN CORPUSCULAR HGB CONC 32.9 g/dL (32.4-35.8); MEAN PLATELET VOLUME 12.4 fL (7.4-10.4); PLATELET COUNT 213 x10^3/uL (130-400); RED BLOOD COUNT 3.44 x10^6/uL (3.82-5.3); RED CELL DISTRIBUTION WIDTH 14.2 % (9.6-15.2)
[2020-04-16 05:50] LABS: MD YES
[2020-04-16 05:53] LABS: BAND#(MANUAL) 2.62 x10^3/uL; BANDS%(MANUAL) 12 % (0-7); EOS#(MANUAL) 0.22 x10^3/uL (0.0-0.4); EOS% (MANUAL) 1 % (1-7); LYMPH#(MANUAL) 1.74 x10^3/uL (1-3.4); LYMPHS% (MANUAL) 8 % (22-44); METAMYELOCYTES# (MANUAL) 1.31 x10^3/uL (0-0); METAMYELOCYTES% (MANUAL) 6 % (0-1); MONOS#(MANUAL) 1.09 x10^3/uL (0.3-2.7); MONOS% (MANUAL) 5 % (2-9); MYELOCYTES# (MANUAL) 1.09 x10^3/uL (0-0); MYELOCYTES% (MANUAL) 5 % (0-0); SEG#(MANUAL) 13.73 x10^3/uL (1.8-6.8); SEGS% (MANUAL) 63 % (42-75)
[2020-04-16 05:54] LABS: <PLATELET ESTIMATE> ADEQUATE; LARGE PLATELETS 1+; POLYCHROMASIA 1+
[2020-04-16 05:56] LABS: TOXIC GRAN 1+
[2020-04-16 05:57] LABS: ANISOCYTOSIS 1+
[2020-04-16] MEDS: MICAFUNGIN 100 MG in SODIUM CHLORIDE 0.9% 100 ML IV SCH (06:25)
[2020-04-16] MEDS ORDERED: ALBUMIN HUMAN 25% 400 ML IV ONE (08:15)
[2020-04-16] MEDS: SODIUM CHLORIDE FLUSH 10ML SYR IVF SCH ×2 (09:00→20:29)
[2020-04-16] MEDS ORDERED: MIDAZOLAM 1 MG/ML, 2ML ONE (09:45)
[2020-04-16] MEDS ORDERED: FENTANYL PF 250 MCG/5ML ONE (09:45)
[2020-04-16] MEDS ORDERED: ROCURONIUM 10MG/ML,5ML ONE (10:17)
[2020-04-16] MEDS ORDERED: PROPOFOL 10 MG/ML, 20ML ONE (10:17)
[2020-04-16] MEDS: MEROPENEM 500 MG in SODIUM CHLORIDE 0.9% 100 ML IV SCH (10:31)
[2020-04-16] MEDS: PANTOPRAZOLE 40 MG IV IV SCH (10:31)
[2020-04-16] MEDS: MEROPENEM 1 GM in SODIUM CHLORIDE 0.9% 100 ML IV SCH (16:19)
[2020-04-16] MEDS: FENTANYL PF 2,500 MCG in SODIUM CHLORIDE 0.9% 200 ML IV PRN (16:30)
[2020-04-16] MEDS: NOREPINEPHRINE 32 MG in SODIUM CHLORIDE 0.9% 218 ML IV PRN (16:31)
[2020-04-16] MEDS ORDERED: DEXTROSE 70% IV SCH (17:00)
[2020-04-16] MEDS ORDERED: FAT EMUL IV SCH (17:00)
[2020-04-16] MEDS ORDERED: AMINO ACID 10% IV SCH (17:00)
[2020-04-16] MEDS ORDERED: [UNRECOGNIZED DRUG - OTHER] IV SCH (17:00)
[2020-04-16] MEDS ORDERED: SMOF TPN IV SCH (17:00)
[2020-04-16] MEDS: ACETAMINOPHEN 650 MG SUPP PR PRN (17:56)
[2020-04-16] MEDS: FILTER, DISP 1.2 MICRON FOR TPN/PVN IV PRN (18:04)
[2020-04-16] MEDS: MIDAZOLAM HCL 50 MG in SODIUM CHLORIDE 0.9% 40 ML IV PRN (19:37)
[2020-04-16] MEDS ORDERED: INSULIN LISPRO 100 UNITS/ML, PEN SQ-INSULIN SCH (21:30)
[2020-04-16] MEDS ORDERED: INSULIN GLARGINE 100 UNITS/ML, PEN SQ-INSULIN SCH (21:30)
[2020-04-17] MEDS: HEPARIN 5,000 UNITS/ML, 1ML SQ SCH ×3 (00:25→16:11)
[2020-04-17] MEDS: AMIODARONE 450 MG in DEXTROSE 5% 241 ML IV PRN ×3 (02:26→18:24)
[2020-04-17] MEDS: MIDAZOLAM HCL 50 MG in SODIUM CHLORIDE 0.9% 40 ML IV PRN (03:14)
[2020-04-17 04:15] VITALS: BP 111/53
[2020-04-17 04:31] LABS: MEAN CORPUSCULAR HEMOGLOBIN 30.8 pg (27.0-34.8); MEAN CORPUSCULAR HGB CONC 32.6 g/dL (32.4-35.8); MEAN PLATELET VOLUME 12.3 fL (7.4-10.4); PLATELET COUNT 222 x10^3/uL (130-400); RED BLOOD COUNT 2.93 x10^6/uL (3.82-5.3); RED CELL DISTRIBUTION WIDTH 14.7 % (9.6-15.2)
[2020-04-17 04:44] LABS: ALBUMIN 1.6 g/dL (3.4-5.0); ANION GAP 13 mmol/L (5-15); CALCIUM 7.6 mg/dL (8.5-10.1); CHLORIDE 105 mmol/L (98-107); TRIGLYCERIDES 307 mg/dL (50-200)
[2020-04-17 04:50] LABS: ALANINE AMINOTRANSFERASE 24 U/L (12-78); ALKALINE PHOSPHATASE 107 U/L (45-117); CREATININE 4.62 mg/dL (0.55-1.02); PREALBUMIN 3.5 mg/dL (20.0-40.0); TOTAL PROTEIN 4.5 g/dL (6.4-8.2); VANCOMYCIN,RANDOM 18.1 mcg/mL
[2020-04-17] MEDS: INSULIN LISPRO 100 UNITS/ML, PEN SQ-INSULIN SCH ×4 (05:00→22:29)
[2020-04-17 05:49] LABS: MD YES
[2020-04-17 05:51] LABS: BAND#(MANUAL) 4.29 x10^3/uL; BANDS%(MANUAL) 15 % (0-7); EOS#(MANUAL) 0.57 x10^3/uL (0.0-0.4); EOS% (MANUAL) 2 % (1-7); LYMPHS% (MANUAL) 7 % (22-44); METAMYELOCYTES# (MANUAL) 1.43 x10^3/uL (0-0); METAMYELOCYTES% (MANUAL) 5 % (0-1); MONOS#(MANUAL) 0.86 x10^3/uL (0.3-2.7); MONOS% (MANUAL) 3 % (2-9); MYELOCYTES# (MANUAL) 0.57 x10^3/uL (0-0); MYELOCYTES% (MANUAL) 2 % (0-0); SEG#(MANUAL) 18.88 x10^3/uL (1.8-6.8); SEGS% (MANUAL) 66 % (42-75)
[2020-04-17 05:52] LABS: ANISOCYTOSIS 1+; POLYCHROMASIA 1+; TOXIC GRAN 1+
[2020-04-17 05:53] LABS: <PLATELET ESTIMATE> ADEQUATE; LARGE PLATELETS 1+
[2020-04-17] MEDS: MICAFUNGIN 100 MG in SODIUM CHLORIDE 0.9% 100 ML IV SCH (06:25)
[2020-04-17] MEDS: FENTANYL PF 2,500 MCG in SODIUM CHLORIDE 0.9% 200 ML IV PRN (06:48)
[2020-04-17] MEDS ORDERED: FLUCONAZOLE 200 MG/100 ML 100 ML IV SCH (07:30)
[2020-04-17] MEDS: SODIUM CHLORIDE FLUSH 10ML SYR IVF SCH ×2 (08:48→21:00)
[2020-04-17] MEDS: PANTOPRAZOLE 40 MG IV IV SCH (08:48)
[2020-04-17] MEDS ORDERED: VANCOMYCIN 1,500 MG in SODIUM CHLORIDE 0.9% 250 ML IV ONE (13:00)
[2020-04-17] MEDS ORDERED: SMOF TPN IV SCH (17:00)
[2020-04-17] MEDS ORDERED: FAT EMUL IV SCH (17:00)
[2020-04-17] MEDS ORDERED: AMINO ACID 10% IV SCH (17:00)
[2020-04-17] MEDS ORDERED: DEXTROSE 70% IV SCH (17:00)
[2020-04-17] MEDS ORDERED: [UNRECOGNIZED DRUG - OTHER] IV SCH (17:00)
[2020-04-17] MEDS: MEROPENEM 1 GM in SODIUM CHLORIDE 0.9% 100 ML IV SCH (17:16)
[2020-04-17] MEDS: FILTER, DISP 1.2 MICRON FOR TPN/PVN IV PRN (17:16)
[2020-04-17] MEDS: FILTER 0.22 MICRON IV PRN (18:24)
[2020-04-17] MEDS: NOREPINEPHRINE 32 MG in SODIUM CHLORIDE 0.9% 218 ML IV PRN (18:25)
[2020-04-18] MEDS: HEPARIN 5,000 UNITS/ML, 1ML SQ SCH ×3 (00:14→17:01)
[2020-04-18] MEDS: AMIODARONE 450 MG in DEXTROSE 5% 241 ML IV PRN (02:09)
[2020-04-18] MEDS: FENTANYL PF 2,500 MCG in SODIUM CHLORIDE 0.9% 200 ML IV PRN ×2 (02:38→21:10)
[2020-04-18] MEDS: ACETAMINOPHEN 650 MG SUPP PR PRN (02:52)
[2020-04-18 04:34] LABS: ANION GAP 10 mmol/L (5-15); CALCIUM 7.5 mg/dL (8.5-10.1); CHLORIDE 100 mmol/L (98-107); CREATININE 3.56 mg/dL (0.55-1.02)
[2020-04-18 04:40] LABS: MEAN CORPUSCULAR HGB CONC 31.9 g/dL (32.4-35.8)
[2020-04-18] MEDS: INSULIN LISPRO 100 UNITS/ML, PEN SQ-INSULIN SCH ×5 (04:40→22:44)
[2020-04-18 04:44] LABS: MEAN CORPUSCULAR HEMOGLOBIN 29.8 pg (27.0-34.8); MEAN PLATELET VOLUME 12.4 fL (7.4-10.4); PLATELET COUNT 255 x10^3/uL (130-400); RED BLOOD COUNT 2.66 x10^6/uL (3.82-5.3); RED CELL DISTRIBUTION WIDTH 14.4 % (9.6-15.2)
[2020-04-18 05:02] LABS: MD YES
[2020-04-18 05:06] LABS: BAND#(MANUAL) 3.63 x10^3/uL; BANDS%(MANUAL) 14 % (0-7); EOS#(MANUAL) 0.52 x10^3/uL (0.0-0.4); EOS% (MANUAL) 2 % (1-7); LYMPH#(MANUAL) 0.26 x10^3/uL (1-3.4); LYMPHS% (MANUAL) 1 % (22-44); MONOS% (MANUAL) 5 % (2-9); MYELOCYTES# (MANUAL) 0.78 x10^3/uL (0-0); MYELOCYTES% (MANUAL) 3 % (0-0); SEG#(MANUAL) 19.43 x10^3/uL (1.8-6.8); SEGS% (MANUAL) 75 % (42-75)
[2020-04-18 05:07] LABS: ANISOCYTOSIS 1+; HYPOCHROMIA 1+; POLYCHROMASIA 1+
[2020-04-18 05:08] LABS: <PLATELET ESTIMATE> ADEQUATE; LARGE PLATELETS 1+; STOMATOCYTES 1+
[2020-04-18] MEDS: MIDAZOLAM HCL 50 MG in SODIUM CHLORIDE 0.9% 40 ML IV PRN ×2 (05:18→17:47)
[2020-04-18] MEDS: SODIUM CHLORIDE FLUSH 10ML SYR IVF SCH ×2 (07:59→21:10)
[2020-04-18] MEDS: PANTOPRAZOLE 40 MG IV IV SCH (07:59)
[2020-04-18] MEDS: FLUCONAZOLE 200 MG/100 ML 100 ML IV SCH (08:00)
[2020-04-18] MEDS ORDERED: ROCURONIUM 10 MG/ML,10ML ONE (15:15)
[2020-04-18] MEDS ORDERED: FENTANYL PF 250 MCG/5ML ONE (15:34)
[2020-04-18] MEDS: MEROPENEM 1 GM in SODIUM CHLORIDE 0.9% 100 ML IV SCH (16:00)
[2020-04-18] MEDS ORDERED: CALCIUM CHLORIDE 10%, 10ML SYR ONE (16:17)
[2020-04-18] MEDS ORDERED: DEXTROSE 70% IV SCH (17:00)
[2020-04-18] MEDS ORDERED: [UNRECOGNIZED DRUG - OTHER] IV SCH (17:00)
[2020-04-18] MEDS ORDERED: AMINO ACID 10% IV SCH (17:00)
[2020-04-18] MEDS ORDERED: SMOF TPN IV SCH (17:00)
[2020-04-18] MEDS ORDERED: FAT EMUL IV SCH (17:00)
[2020-04-18] MEDS: FILTER, DISP 1.2 MICRON FOR TPN/PVN IV PRN (17:01)
[2020-04-18] MEDS: NOREPINEPHRINE 32 MG in SODIUM CHLORIDE 0.9% 218 ML IV PRN (18:32)
[2020-04-19] MEDS: HEPARIN 5,000 UNITS/ML, 1ML SQ SCH ×3 (01:01→17:24)
[2020-04-19] MEDS: AMIODARONE 450 MG in DEXTROSE 5% 241 ML IV PRN ×3 (01:02→16:37)
[2020-04-19] MEDS: ACETAMINOPHEN 650 MG SUPP PR PRN (02:55)
[2020-04-19 04:54] LABS: MEAN CORPUSCULAR HEMOGLOBIN 29.9 pg (27.0-34.8); MEAN CORPUSCULAR HGB CONC 31.4 g/dL (32.4-35.8); MEAN PLATELET VOLUME 12.4 fL (7.4-10.4); PLATELET COUNT 297 x10^3/uL (130-400); RED BLOOD COUNT 2.35 x10^6/uL (3.82-5.3); RED CELL DISTRIBUTION WIDTH 14.2 % (9.6-15.2)
[2020-04-19] MEDS: INSULIN LISPRO 100 UNITS/ML, PEN SQ-INSULIN SCH (06:00)
[2020-04-19 06:07] LABS: ANION GAP 10 mmol/L (5-15); CALCIUM 7.3 mg/dL (8.5-10.1); CHLORIDE 98 mmol/L (98-107); CREATININE 3.15 mg/dL (0.55-1.02); MD YES
[2020-04-19 06:08] LABS: ANISOCYTOSIS 1+; BAND#(MANUAL) 3.48 x10^3/uL; BANDS%(MANUAL) 12 % (0-7); LYMPH#(MANUAL) 1.16 x10^3/uL (1-3.4); LYMPHS% (MANUAL) 4 % (22-44); METAMYELOCYTES# (MANUAL) 0.29 x10^3/uL (0-0); METAMYELOCYTES% (MANUAL) 1 % (0-1); MONOS#(MANUAL) 2.03 x10^3/uL (0.3-2.7); MONOS% (MANUAL) 7 % (2-9); MYELOCYTES# (MANUAL) 1.45 x10^3/uL (0-0); MYELOCYTES% (MANUAL) 5 % (0-0); POLYCHROMASIA 1+; SEG#(MANUAL) 20.59 x10^3/uL (1.8-6.8); SEGS% (MANUAL) 71 % (42-75)
[2020-04-19 06:09] LABS: <PLATELET ESTIMATE> ADEQUATE; LARGE PLATELETS 1+; TOXIC GRAN 1+
[2020-04-19] MEDS: PANTOPRAZOLE 40 MG IV IV SCH (09:14)
[2020-04-19] MEDS: MIDAZOLAM HCL 50 MG in SODIUM CHLORIDE 0.9% 40 ML IV PRN ×2 (09:14→22:51)
[2020-04-19] MEDS: FLUCONAZOLE 200 MG/100 ML 100 ML IV SCH (09:14)
[2020-04-19] MEDS: SODIUM CHLORIDE FLUSH 10ML SYR IVF SCH ×2 (09:15→19:55)
[2020-04-19 11:57] VITALS: BP 92/47
[2020-04-19] MEDS: FENTANYL PF 2,500 MCG in SODIUM CHLORIDE 0.9% 200 ML IV PRN (15:05)
[2020-04-19 15:30] VITALS: BP 88/53
[2020-04-19] MEDS ORDERED: [UNRECOGNIZED DRUG - OTHER] IV SCH (17:00)
[2020-04-19] MEDS ORDERED: AMINO ACID 10% IV SCH (17:00)
[2020-04-19] MEDS ORDERED: DEXTROSE 70% IV SCH (17:00)
[2020-04-19] MEDS ORDERED: FILTER, DISP 1.2 MICRON FOR TPN/PVN IV PRN (17:00)
[2020-04-19] MEDS ORDERED: SMOF TPN IV SCH (17:00)
[2020-04-19] MEDS ORDERED: FAT EMUL IV SCH (17:00)
[2020-04-19] MEDS: NOREPINEPHRINE 32 MG in SODIUM CHLORIDE 0.9% 218 ML IV PRN (18:18)
[2020-04-19] MEDS: MEROPENEM 1 GM in SODIUM CHLORIDE 0.9% 100 ML IV SCH (19:56)
[2020-04-20] MEDS: HEPARIN 5,000 UNITS/ML, 1ML SQ SCH ×3 (00:16→17:34)
[2020-04-20] MEDS: AMIODARONE 450 MG in DEXTROSE 5% 241 ML IV PRN ×5 (00:16→23:45)
[2020-04-20] MEDS: NOREPINEPHRINE 32 MG in SODIUM CHLORIDE 0.9% 218 ML IV PRN (00:17)
[2020-04-20 04:23] LABS: MEAN CORPUSCULAR HEMOGLOBIN 30.7 pg (27.0-34.8); MEAN CORPUSCULAR HGB CONC 32.3 g/dL (32.4-35.8); MEAN PLATELET VOLUME 12.1 fL (7.4-10.4); PLATELET COUNT 277 x10^3/uL (130-400); RED BLOOD COUNT 2.33 x10^6/uL (3.82-5.3); RED CELL DISTRIBUTION WIDTH 14.3 % (9.6-15.2)
[2020-04-20 04:43] LABS: ANION GAP 9 mmol/L (5-15); CALCIUM 7.1 mg/dL (8.5-10.1); CHLORIDE 99 mmol/L (98-107); CREATININE 2.76 mg/dL (0.55-1.02); TRIGLYCERIDES 221 mg/dL (50-200); VANCOMYCIN,RANDOM 14.7 mcg/mL
[2020-04-20 05:12] LABS: MD YES
[2020-04-20 05:15] LABS: <PLATELET ESTIMATE> ADEQUATE; BANDS%(MANUAL) 12 % (0-7); LARGE PLATELETS 1+; LYMPH#(MANUAL) 1.35 x10^3/uL (1-3.4); LYMPHS% (MANUAL) 6 % (22-44); METAMYELOCYTES% (MANUAL) 4 % (0-1); MICROCYTOSIS 1+; MONOS% (MANUAL) 4 % (2-9); MYELOCYTES# (MANUAL) 0.45 x10^3/uL (0-0); MYELOCYTES% (MANUAL) 2 % (0-0); POLYCHROMASIA 1+; SEGS% (MANUAL) 72 % (42-75)
[2020-04-20] MEDS: FENTANYL PF 2,500 MCG in SODIUM CHLORIDE 0.9% 200 ML IV PRN (05:21)
[2020-04-20 05:40] VITALS: BP 92/45
[2020-04-20 05:55] VITALS: BP 101/48
[2020-04-20] MEDS: MIDAZOLAM HCL 50 MG in SODIUM CHLORIDE 0.9% 40 ML IV PRN ×2 (06:12→17:32)
[2020-04-20] MEDS: INSULIN LISPRO 100 UNITS/ML, PEN SQ-INSULIN SCH (07:44)
[2020-04-20] MEDS: FLUCONAZOLE 200 MG/100 ML 100 ML IV SCH (07:56)
[2020-04-20 08:15] VITALS: BP 104/59
[2020-04-20] MEDS ORDERED: SMOF TPN IV SCH ×4 (09:00→17:00)
[2020-04-20] MEDS ORDERED: FAT EMUL IV SCH ×4 (09:00→17:00)
[2020-04-20] MEDS ORDERED: DEXTROSE 70% IV SCH ×4 (09:00→17:00)
[2020-04-20] MEDS ORDERED: AMINO ACID 10% IV SCH ×4 (09:00→17:00)
[2020-04-20] MEDS ORDERED: [UNRECOGNIZED DRUG - OTHER] IV SCH ×2 (09:00→17:00)
[2020-04-20] MEDS: PANTOPRAZOLE 40 MG IV IV SCH (09:59)
[2020-04-20] MEDS: SODIUM CHLORIDE FLUSH 10ML SYR IVF SCH ×2 (09:59→21:11)
[2020-04-20] MEDS ORDERED: VANCOMYCIN 1,600 MG in SODIUM CHLORIDE 0.9% 250 ML IV ONE (14:00)
[2020-04-20] MEDS ORDERED: FILTER, DISP 1.2 MICRON FOR TPN/PVN IV PRN (17:00)
[2020-04-20] MEDS ORDERED: [UNRECOGNIZED DRUG - OTHER] IV SCH (17:00)
[2020-04-20] MEDS ORDERED: [UNRECOGNIZED DRUG - OTHER] IV SCH (17:00)
[2020-04-20] MEDS: MEROPENEM 1 GM in SODIUM CHLORIDE 0.9% 100 ML IV SCH (21:11)
[2020-04-21] MEDS: HEPARIN 5,000 UNITS/ML, 1ML SQ SCH ×4 (00:15→23:51)
[2020-04-21] MEDS: FENTANYL PF 2,500 MCG in SODIUM CHLORIDE 0.9% 200 ML IV PRN ×2 (00:36→18:34)
[2020-04-21] MEDS: MIDAZOLAM HCL 50 MG in SODIUM CHLORIDE 0.9% 40 ML IV PRN ×3 (00:41→21:41)
[2020-04-21 04:14] LABS: ANION GAP 8 mmol/L (5-15); CALCIUM 7.3 mg/dL (8.5-10.1); CHLORIDE 102 mmol/L (98-107)
[2020-04-21 04:15] LABS: CREATININE 2.55 mg/dL (0.55-1.02)
[2020-04-21 04:24] LABS: MEAN CORPUSCULAR HEMOGLOBIN 31.6 pg (27.0-34.8); MEAN CORPUSCULAR HGB CONC 32.7 g/dL (32.4-35.8); MEAN PLATELET VOLUME 12.1 fL (7.4-10.4); PLATELET COUNT 265 x10^3/uL (130-400); RED BLOOD COUNT 2.58 x10^6/uL (3.82-5.3); RED CELL DISTRIBUTION WIDTH 14.3 % (9.6-15.2)
[2020-04-21 05:51] LABS: MD YES
[2020-04-21 05:54] LABS: <PLATELET ESTIMATE> ADEQUATE; ANISOCYTOSIS 1+; BAND#(MANUAL) 2.69 x10^3/uL; BANDS%(MANUAL) 14 % (0-7); EOS#(MANUAL) 0.58 x10^3/uL (0.0-0.4); EOS% (MANUAL) 3 % (1-7); LARGE PLATELETS 1+; LYMPH#(MANUAL) 1.15 x10^3/uL (1-3.4); LYMPHS% (MANUAL) 6 % (22-44); METAMYELOCYTES# (MANUAL) 1.92 x10^3/uL (0-0); METAMYELOCYTES% (MANUAL) 10 % (0-1); MONOS#(MANUAL) 0.58 x10^3/uL (0.3-2.7); MONOS% (MANUAL) 3 % (2-9); MYELOCYTES# (MANUAL) 1.34 x10^3/uL (0-0); MYELOCYTES% (MANUAL) 7 % (0-0); POLYCHROMASIA 1+; SEG#(MANUAL) 10.94 x10^3/uL (1.8-6.8); SEGS% (MANUAL) 57 % (42-75)
[2020-04-21 05:55] LABS: PMNS WITH VACUOLES 1+
[2020-04-21 06:19] LABS: SMUDGE CELLS 1+
[2020-04-21] MEDS: AMIODARONE 450 MG in DEXTROSE 5% 241 ML IV PRN ×3 (07:14→21:00)
[2020-04-21] MEDS: FLUCONAZOLE 200 MG/100 ML 100 ML IV SCH (08:23)
[2020-04-21] MEDS: PANTOPRAZOLE 40 MG IV IV SCH (08:46)
[2020-04-21] MEDS: SODIUM CHLORIDE FLUSH 10ML SYR IVF SCH ×2 (08:46→21:00)
[2020-04-21] MEDS: INSULIN LISPRO 100 UNITS/ML, PEN SQ-INSULIN SCH (08:46)
[2020-04-21] MEDS ORDERED: MAGNESIUM SULFATE PMX 2GM/50ML 50 ML IV ONE (09:00)
[2020-04-21] MEDS ORDERED: POTASSIUM CHLORIDE PMX 100 ML IV ONE (09:30)
[2020-04-21] MEDS: ACETAMINOPHEN 650 MG SUPP PR PRN (11:22)
[2020-04-21] MEDS: NOREPINEPHRINE 32 MG in SODIUM CHLORIDE 0.9% 218 ML IV PRN (14:01)
[2020-04-21] MEDS ORDERED: ROCURONIUM 10MG/ML,5ML ONE (16:30)
[2020-04-21] MEDS ORDERED: [UNRECOGNIZED DRUG - OTHER] IV SCH (17:00)
[2020-04-21] MEDS ORDERED: SMOF TPN IV SCH (17:00)
[2020-04-21] MEDS ORDERED: DEXTROSE 70% IV SCH (17:00)
[2020-04-21] MEDS ORDERED: AMINO ACID 10% IV SCH (17:00)
[2020-04-21] MEDS ORDERED: FAT EMUL IV SCH (17:00)
[2020-04-21] MEDS: FILTER, DISP 1.2 MICRON FOR TPN/PVN IV PRN (17:02)
[2020-04-21] MEDS: MEROPENEM 1 GM in SODIUM CHLORIDE 0.9% 100 ML IV SCH (21:41)
[2020-04-22 03:54] LABS: MEAN CORPUSCULAR HEMOGLOBIN 31.4 pg (27.0-34.8); MEAN CORPUSCULAR HGB CONC 32.7 g/dL (32.4-35.8); PLATELET COUNT 261 x10^3/uL (130-400); RED BLOOD COUNT 2.76 x10^6/uL (3.82-5.3)
[2020-04-22 04:00] VITALS: BP 101/51
[2020-04-22 04:06] LABS: ANION GAP 6 mmol/L (5-15); BILIRUBIN, DIRECT 2.1 mg/dL (0.1-0.2); CHLORIDE 102 mmol/L (98-107); CREATININE 2.25 mg/dL (0.55-1.02)
[2020-04-22 04:09] LABS: BILIRUBIN,INDIRECT 0.4 mg/dL (0.0-2.0); BILIRUBIN,TOTAL 2.5 mg/dL (0.2-1.0)
[2020-04-22 04:17] LABS: MD YES
[2020-04-22 04:23] LABS: <PLATELET ESTIMATE> ADEQUATE; ANISOCYTOSIS 1+; BAND#(MANUAL) 2.76 x10^3/uL; BANDS%(MANUAL) 15 % (0-7); EOS#(MANUAL) 0.18 x10^3/uL (0.0-0.4); EOS% (MANUAL) 1 % (1-7); LARGE PLATELETS 1+; LYMPH#(MANUAL) 0.55 x10^3/uL (1-3.4); LYMPHS% (MANUAL) 3 % (22-44); METAMYELOCYTES# (MANUAL) 0.74 x10^3/uL (0-0); METAMYELOCYTES% (MANUAL) 4 % (0-1); MONOS#(MANUAL) 0.74 x10^3/uL (0.3-2.7); MONOS% (MANUAL) 4 % (2-9); MYELOCYTES# (MANUAL) 0.18 x10^3/uL (0-0); MYELOCYTES% (MANUAL) 1 % (0-0); POLYCHROMASIA 1+; SEG#(MANUAL) 13.25 x10^3/uL (1.8-6.8); SEGS% (MANUAL) 72 % (42-75)
[2020-04-22] MEDS: AMIODARONE 450 MG in DEXTROSE 5% 241 ML IV PRN ×3 (04:43→19:21)
[2020-04-22] MEDS: INSULIN LISPRO 100 UNITS/ML, PEN SQ-INSULIN SCH (07:36)
[2020-04-22] MEDS: FLUCONAZOLE 200 MG/100 ML 100 ML IV SCH (07:36)
[2020-04-22] MEDS: PANTOPRAZOLE 40 MG IV IV SCH (08:39)
[2020-04-22] MEDS: HEPARIN 5,000 UNITS/ML, 1ML SQ SCH ×2 (08:40→17:10)
[2020-04-22] MEDS: SODIUM CHLORIDE FLUSH 10ML SYR IVF SCH ×2 (08:40→20:34)
[2020-04-22] MEDS: NOREPINEPHRINE 32 MG in SODIUM CHLORIDE 0.9% 218 ML IV PRN (12:00)
[2020-04-22] MEDS: FENTANYL PF 2,500 MCG in SODIUM CHLORIDE 0.9% 200 ML IV PRN (14:09)
[2020-04-22] MEDS ORDERED: VANCOMYCIN 1,600 MG in SODIUM CHLORIDE 0.9% 250 ML IV ONE (16:00)
[2020-04-22] MEDS ORDERED: AMINO ACID 10% IV SCH (17:00)
[2020-04-22] MEDS ORDERED: [UNRECOGNIZED DRUG - OTHER] IV SCH (17:00)
[2020-04-22] MEDS ORDERED: FAT EMUL IV SCH (17:00)
[2020-04-22] MEDS ORDERED: SMOF TPN IV SCH (17:00)
[2020-04-22] MEDS ORDERED: DEXTROSE 70% IV SCH (17:00)
[2020-04-22] MEDS: MIDAZOLAM HCL 50 MG in SODIUM CHLORIDE 0.9% 40 ML IV PRN (17:02)
[2020-04-22] MEDS: FILTER, DISP 1.2 MICRON FOR TPN/PVN IV PRN ×2 (17:10→17:25)
[2020-04-22] MEDS: MEROPENEM 1 GM in SODIUM CHLORIDE 0.9% 100 ML IV SCH (20:34)
[2020-04-23] MEDS: HEPARIN 5,000 UNITS/ML, 1ML SQ SCH ×4 (00:01→23:58)
[2020-04-23] MEDS: AMIODARONE 450 MG in DEXTROSE 5% 241 ML IV PRN ×2 (02:32→09:42)
[2020-04-23 03:42] LABS: MEAN CORPUSCULAR HEMOGLOBIN 31.5 pg (27.0-34.8); MEAN CORPUSCULAR HGB CONC 32.6 g/dL (32.4-35.8); MEAN PLATELET VOLUME 12.3 fL (7.4-10.4); PLATELET COUNT 242 x10^3/uL (130-400); RED BLOOD COUNT 2.63 x10^6/uL (3.82-5.3); RED CELL DISTRIBUTION WIDTH 15.2 % (9.6-15.2)
[2020-04-23 03:49] LABS: ANION GAP 7 mmol/L (5-15); CALCIUM 7.2 mg/dL (8.5-10.1); CHLORIDE 102 mmol/L (98-107)
[2020-04-23 03:51] LABS: BILIRUBIN, DIRECT 1.9 mg/dL (0.1-0.2); BILIRUBIN,INDIRECT 0.5 mg/dL (0.0-2.0); BILIRUBIN,TOTAL 2.4 mg/dL (0.2-1.0); CREATININE 2.21 mg/dL (0.55-1.02); TRIGLYCERIDES 268 mg/dL (50-200)
[2020-04-23 04:00] VITALS: BP 134/68
[2020-04-23 04:41] LABS: MD YES
[2020-04-23 04:45] LABS: BAND#(MANUAL) 2.94 x10^3/uL; BANDS%(MANUAL) 21 % (0-7); EOS#(MANUAL) 0.28 x10^3/uL (0.0-0.4); EOS% (MANUAL) 2 % (1-7); LYMPHS% (MANUAL) 5 % (22-44); METAMYELOCYTES# (MANUAL) 0.98 x10^3/uL (0-0); METAMYELOCYTES% (MANUAL) 7 % (0-1); MONOS% (MANUAL) 5 % (2-9); MYELOCYTES% (MANUAL) 10 % (0-0); SEGS% (MANUAL) 50 % (42-75)
[2020-04-23 04:46] LABS: ANISOCYTOSIS 1+; POLYCHROMASIA 1+
[2020-04-23 04:47] LABS: <PLATELET ESTIMATE> ADEQUATE; LARGE PLATELETS 1+
[2020-04-23] MEDS: FENTANYL PF 2,500 MCG in SODIUM CHLORIDE 0.9% 200 ML IV PRN ×2 (06:52→23:15)
[2020-04-23] MEDS: FLUCONAZOLE 200 MG/100 ML 100 ML IV SCH (08:21)
[2020-04-23] MEDS: MIDAZOLAM HCL 50 MG in SODIUM CHLORIDE 0.9% 40 ML IV PRN (08:24)
[2020-04-23] MEDS: NOREPINEPHRINE 32 MG in SODIUM CHLORIDE 0.9% 218 ML IV PRN (08:24)
[2020-04-23] MEDS: INSULIN LISPRO 100 UNITS/ML, PEN SQ-INSULIN SCH (09:00)
[2020-04-23] MEDS: SODIUM CHLORIDE FLUSH 10ML SYR IVF SCH ×2 (09:05→20:38)
[2020-04-23] MEDS: PANTOPRAZOLE 40 MG IV IV SCH (09:05)
[2020-04-23] MEDS ORDERED: ROCURONIUM 10MG/ML,5ML ONE (13:38)
[2020-04-23] MEDS: FILTER, DISP 1.2 MICRON FOR TPN/PVN IV PRN (15:23)
[2020-04-23] MEDS ORDERED: FAT EMUL IV SCH (17:00)
[2020-04-23] MEDS ORDERED: DEXTROSE 70% IV SCH (17:00)
[2020-04-23] MEDS ORDERED: AMINO ACID 10% IV SCH (17:00)
[2020-04-23] MEDS ORDERED: SMOF TPN IV SCH (17:00)
[2020-04-23] MEDS ORDERED: [UNRECOGNIZED DRUG - OTHER] IV SCH (17:00)
[2020-04-23] MEDS: MEROPENEM 1 GM in SODIUM CHLORIDE 0.9% 100 ML IV SCH (20:37)
[2020-04-24] MEDS: AMIODARONE 450 MG in DEXTROSE 5% 241 ML IV PRN ×4 (01:10→21:05)
[2020-04-24 04:31] LABS: MEAN CORPUSCULAR HEMOGLOBIN 31.7 pg (27.0-34.8); MEAN CORPUSCULAR HGB CONC 32.4 g/dL (32.4-35.8); MEAN PLATELET VOLUME 11.9 fL (7.4-10.4); PLATELET COUNT 244 x10^3/uL (130-400); RED BLOOD COUNT 2.53 x10^6/uL (3.82-5.3); RED CELL DISTRIBUTION WIDTH 15.1 % (9.6-15.2)
[2020-04-24 04:38] LABS: ALANINE AMINOTRANSFERASE 42 U/L (12-78); ALBUMIN 0.7 g/dL (3.4-5.0); ANION GAP 10 mmol/L (5-15); CALCIUM 7.4 mg/dL (8.5-10.1); CHLORIDE 104 mmol/L (98-107); CREATININE 2.06 mg/dL (0.55-1.02)
[2020-04-24 04:43] LABS: ALKALINE PHOSPHATASE 144 U/L (45-117); BILIRUBIN,TOTAL 2.6 mg/dL (0.2-1.0); TOTAL PROTEIN 5.1 g/dL (6.4-8.2)
[2020-04-24 04:45] LABS: PREALBUMIN < 3.0 mg/dL (20.0-40.0)
[2020-04-24 05:50] LABS: MD YES
[2020-04-24 05:53] LABS: ANISOCYTOSIS 1+; BAND#(MANUAL) 2.15 x10^3/uL; BANDS%(MANUAL) 15 % (0-7); BASOS#(MANUAL) 0.14 x10^3/uL (0-0.1); BASOS% (MANUAL) 1 % (0-1); LYMPH#(MANUAL) 0.72 x10^3/uL (1-3.4); LYMPHS% (MANUAL) 5 % (22-44); METAMYELOCYTES# (MANUAL) 0.43 x10^3/uL (0-0); METAMYELOCYTES% (MANUAL) 3 % (0-1); MONOS#(MANUAL) 0.86 x10^3/uL (0.3-2.7); MONOS% (MANUAL) 6 % (2-9); MYELOCYTES# (MANUAL) 1.14 x10^3/uL (0-0); MYELOCYTES% (MANUAL) 8 % (0-0); POLYCHROMASIA 1+; SEG#(MANUAL) 8.87 x10^3/uL (1.8-6.8); SEGS% (MANUAL) 62 % (42-75)
[2020-04-24 05:54] LABS: <PLATELET ESTIMATE> ADEQUATE; LARGE PLATELETS 1+
[2020-04-24 06:03] VITALS: BP 107/59
[2020-04-24] MEDS: FLUCONAZOLE 200 MG/100 ML 100 ML IV SCH (07:47)
[2020-04-24] MEDS: INSULIN LISPRO 100 UNITS/ML, PEN SQ-INSULIN SCH (07:49)
[2020-04-24] MEDS: SODIUM CHLORIDE FLUSH 10ML SYR IVF SCH ×2 (09:38→21:05)
[2020-04-24] MEDS: HEPARIN 5,000 UNITS/ML, 1ML SQ SCH ×2 (09:38→18:19)
[2020-04-24] MEDS: PANTOPRAZOLE 40 MG IV IV SCH (09:38)
[2020-04-24] MEDS: ACETAMINOPHEN 650 MG SUPP PR PRN (10:53)
[2020-04-24] MEDS: MIDAZOLAM HCL 50 MG in SODIUM CHLORIDE 0.9% 40 ML IV PRN (14:58)
[2020-04-24] MEDS: FENTANYL PF 2,500 MCG in SODIUM CHLORIDE 0.9% 200 ML IV PRN (15:29)
[2020-04-24] MEDS ORDERED: SMOF TPN IV SCH (17:00)
[2020-04-24] MEDS ORDERED: FAT EMUL IV SCH (17:00)
[2020-04-24] MEDS ORDERED: DEXTROSE 70% IV SCH (17:00)
[2020-04-24] MEDS ORDERED: AMINO ACID 10% IV SCH (17:00)
[2020-04-24] MEDS ORDERED: [UNRECOGNIZED DRUG - OTHER] IV SCH (17:00)
[2020-04-24] MEDS: FILTER 0.22 MICRON IV PRN (21:05)
[2020-04-24] MEDS: MEROPENEM 1 GM in SODIUM CHLORIDE 0.9% 100 ML IV SCH (22:50)
[2020-04-25] MEDS: HEPARIN 5,000 UNITS/ML, 1ML SQ SCH ×3 (00:09→17:40)
[2020-04-25] MEDS: NOREPINEPHRINE 32 MG in SODIUM CHLORIDE 0.9% 218 ML IV PRN (01:47)
[2020-04-25 04:24] LABS: MEAN CORPUSCULAR HEMOGLOBIN 31.2 pg (27.0-34.8); MEAN CORPUSCULAR HGB CONC 32.1 g/dL (32.4-35.8); MEAN PLATELET VOLUME 11.9 fL (7.4-10.4); PLATELET COUNT 247 x10^3/uL (130-400); RED BLOOD COUNT 2.51 x10^6/uL (3.82-5.3)
[2020-04-25 04:36] LABS: ANION GAP 5 mmol/L (5-15); CALCIUM 7.3 mg/dL (8.5-10.1); CHLORIDE 102 mmol/L (98-107); CREATININE 1.96 mg/dL (0.55-1.02)
[2020-04-25 04:37] LABS: VANCOMYCIN,RANDOM 17.9 mcg/mL
[2020-04-25] MEDS: AMIODARONE 450 MG in DEXTROSE 5% 241 ML IV PRN ×2 (04:43→14:53)
[2020-04-25 04:53] LABS: MD YES
[2020-04-25 04:56] LABS: BAND#(MANUAL) 3.02 x10^3/uL; BANDS%(MANUAL) 20 % (0-7); EOS#(MANUAL) 0.15 x10^3/uL (0.0-0.4); EOS% (MANUAL) 1 % (1-7); LYMPH#(MANUAL) 0.91 x10^3/uL (1-3.4); LYMPHS% (MANUAL) 6 % (22-44); METAMYELOCYTES% (MANUAL) 4 % (0-1); MONOS% (MANUAL) 4 % (2-9); MYELOCYTES# (MANUAL) 1.36 x10^3/uL (0-0); MYELOCYTES% (MANUAL) 9 % (0-0); SEG#(MANUAL) 8.46 x10^3/uL (1.8-6.8); SEGS% (MANUAL) 56 % (42-75)
[2020-04-25 04:57] LABS: <PLATELET ESTIMATE> ADEQUATE; ANISOCYTOSIS 1+; LARGE PLATELETS 1+; POLYCHROMASIA 1+
[2020-04-25] MEDS: MEROPENEM 1 GM in SODIUM CHLORIDE 0.9% 100 ML IV SCH ×2 (06:19→23:00)
[2020-04-25] MEDS: INSULIN LISPRO 100 UNITS/ML, PEN SQ-INSULIN SCH (07:26)
[2020-04-25] MEDS: FLUCONAZOLE 200 MG/100 ML 100 ML IV SCH (08:30)
[2020-04-25] MEDS: PANTOPRAZOLE 40 MG IV IV SCH (08:30)
[2020-04-25] MEDS: SODIUM CHLORIDE FLUSH 10ML SYR IVF SCH ×2 (08:32→21:00)
[2020-04-25] MEDS: FENTANYL PF 2,500 MCG in SODIUM CHLORIDE 0.9% 200 ML IV PRN (14:53)
[2020-04-25] MEDS: ACETAMINOPHEN 650 MG SUPP PR PRN (14:59)
[2020-04-25] MEDS ORDERED: DEXTROSE 70% IV SCH (17:00)
[2020-04-25] MEDS ORDERED: [UNRECOGNIZED DRUG - OTHER] IV SCH (17:00)
[2020-04-25] MEDS ORDERED: SMOF TPN IV SCH (17:00)
[2020-04-25] MEDS ORDERED: FAT EMUL IV SCH (17:00)
[2020-04-25] MEDS ORDERED: AMINO ACID 10% IV SCH (17:00)
[2020-04-26 04:51] LABS: MEAN CORPUSCULAR HEMOGLOBIN 30.3 pg (27.0-34.8); MEAN CORPUSCULAR HGB CONC 31.4 g/dL (32.4-35.8); MEAN PLATELET VOLUME 11.8 fL (7.4-10.4); PLATELET COUNT 258 x10^3/uL (130-400); RED BLOOD COUNT 2.58 x10^6/uL (3.82-5.3); RED CELL DISTRIBUTION WIDTH 16.5 % (9.6-15.2)
[2020-04-26 05:02] LABS: ANION GAP 11 mmol/L (5-15); CALCIUM 7.7 mg/dL (8.5-10.1); CHLORIDE 103 mmol/L (98-107); CREATININE 2.93 mg/dL (0.55-1.02)
[2020-04-26 05:23] LABS: MD YES
[2020-04-26 05:25] LABS: BAND#(MANUAL) 2.68 x10^3/uL; BANDS%(MANUAL) 18 % (0-7); LYMPHS% (MANUAL) 4 % (22-44); METAMYELOCYTES# (MANUAL) 1.04 x10^3/uL (0-0); METAMYELOCYTES% (MANUAL) 7 % (0-1); MONOS#(MANUAL) 0.89 x10^3/uL (0.3-2.7); MONOS% (MANUAL) 6 % (2-9); MYELOCYTES% (MANUAL) 4 % (0-0); SEG#(MANUAL) 9.09 x10^3/uL (1.8-6.8); SEGS% (MANUAL) 61 % (42-75)
[2020-04-26 05:26] LABS: <PLATELET ESTIMATE> ADEQUATE; ANISOCYTOSIS 1+; LARGE PLATELETS 1+; POLYCHROMASIA 1+
[2020-04-26] MEDS: AMIODARONE 450 MG in DEXTROSE 5% 241 ML IV PRN ×2 (06:03→21:16)
[2020-04-26] MEDS: MIDAZOLAM HCL 50 MG in SODIUM CHLORIDE 0.9% 40 ML IV PRN (06:05)
[2020-04-26] MEDS: FLUCONAZOLE 200 MG/100 ML 100 ML IV SCH (08:04)
[2020-04-26] MEDS: PANTOPRAZOLE 40 MG IV IV SCH (08:49)
[2020-04-26] MEDS: INSULIN LISPRO 100 UNITS/ML, PEN SQ-INSULIN SCH (08:49)
[2020-04-26] MEDS: SODIUM CHLORIDE FLUSH 10ML SYR IVF SCH ×2 (08:49→21:00)
[2020-04-26] MEDS: HEPARIN 5,000 UNITS/ML, 1ML SQ SCH ×3 (08:49→17:14)
[2020-04-26] MEDS ORDERED: ROCURONIUM 10MG/ML,5ML ONE (13:38)
[2020-04-26] MEDS ORDERED: FENTANYL PF 250 MCG/5ML ONE (13:40)
[2020-04-26] MEDS: MEROPENEM 1 GM in SODIUM CHLORIDE 0.9% 100 ML IV SCH ×2 (15:03→21:16)
[2020-04-26] MEDS: FILTER, DISP 1.2 MICRON FOR TPN/PVN IV PRN ×2 (16:20→21:16)
[2020-04-26] MEDS ORDERED: [UNRECOGNIZED DRUG - OTHER] IV SCH (17:00)
[2020-04-26] MEDS ORDERED: AMINO ACID 10% IV SCH (17:00)
[2020-04-26] MEDS ORDERED: DEXTROSE 70% IV SCH (17:00)
[2020-04-26] MEDS ORDERED: SMOF TPN IV SCH (17:00)
[2020-04-26] MEDS ORDERED: FAT EMUL IV SCH (17:00)
[2020-04-26] MEDS: FENTANYL PF 2,500 MCG in SODIUM CHLORIDE 0.9% 200 ML IV PRN (17:41)
[2020-04-27] MEDS: HEPARIN 5,000 UNITS/ML, 1ML SQ SCH ×4 (00:34→22:55)
[2020-04-27] MEDS: ACETAMINOPHEN 650 MG SUPP PR PRN (03:44)
[2020-04-27 05:03] LABS: MEAN CORPUSCULAR HEMOGLOBIN 31.3 pg (27.0-34.8); MEAN CORPUSCULAR HGB CONC 32.3 g/dL (32.4-35.8); MEAN PLATELET VOLUME 11.5 fL (7.4-10.4); PLATELET COUNT 273 x10^3/uL (130-400); RED BLOOD COUNT 2.46 x10^6/uL (3.82-5.3); RED CELL DISTRIBUTION WIDTH 16.4 % (9.6-15.2)
[2020-04-27 05:21] LABS: BILIRUBIN,TOTAL 1.9 mg/dL (0.2-1.0)
[2020-04-27 05:27] LABS: ANION GAP 10 mmol/L (5-15); CALCIUM 7.4 mg/dL (8.5-10.1); CHLORIDE 102 mmol/L (98-107); CREATININE 2.61 mg/dL (0.55-1.02)
[2020-04-27 05:38] LABS: MD YES
[2020-04-27 05:43] LABS: ANISOCYTOSIS 1+; BAND#(MANUAL) 2.25 x10^3/uL; BANDS%(MANUAL) 13 % (0-7); EOS#(MANUAL) 0.17 x10^3/uL (0.0-0.4); EOS% (MANUAL) 1 % (1-7); LYMPH#(MANUAL) 1.21 x10^3/uL (1-3.4); LYMPHS% (MANUAL) 7 % (22-44); METAMYELOCYTES# (MANUAL) 0.17 x10^3/uL (0-0); METAMYELOCYTES% (MANUAL) 1 % (0-1); MONOS#(MANUAL) 0.52 x10^3/uL (0.3-2.7); MONOS% (MANUAL) 3 % (2-9); MYELOCYTES# (MANUAL) 1.21 x10^3/uL (0-0); MYELOCYTES% (MANUAL) 7 % (0-0); POLYCHROMASIA 1+; SEG#(MANUAL) 11.76 x10^3/uL (1.8-6.8); SEGS% (MANUAL) 68 % (42-75)
[2020-04-27 05:44] LABS: <PLATELET ESTIMATE> ADEQUATE; LARGE PLATELETS 1+
[2020-04-27] MEDS: INSULIN LISPRO 100 UNITS/ML, PEN SQ-INSULIN SCH (07:46)
[2020-04-27] MEDS: FLUCONAZOLE 200 MG/100 ML 100 ML IV SCH (07:54)
[2020-04-27] MEDS: PANTOPRAZOLE 40 MG IV IV SCH (07:54)
[2020-04-27] MEDS: SODIUM CHLORIDE FLUSH 10ML SYR IVF SCH ×2 (07:55→20:07)
[2020-04-27] MEDS: AMIODARONE 450 MG in DEXTROSE 5% 241 ML IV PRN ×2 (12:58→23:44)
[2020-04-27] MEDS: NOREPINEPHRINE 32 MG in SODIUM CHLORIDE 0.9% 218 ML IV PRN (12:59)
[2020-04-27] MEDS ORDERED: ATOR20TA37 PO (14:24)
[2020-04-27] MEDS ORDERED: ATEN25TA PO (14:24)
[2020-04-27] MEDS ORDERED: MONT10TA96 PO (14:24)
[2020-04-27] MEDS ORDERED: LISI-167 PO (14:24)
[2020-04-27] MEDS ORDERED: OXYC-302 PO (14:24)
[2020-04-27] MEDS ORDERED: MULT-658 PO (14:24)
[2020-04-27] MEDS ORDERED: TIZA4CAP PO (14:24)
[2020-04-27] MEDS ORDERED: FLUO40CA2 PO (14:24)
[2020-04-27] MEDS ORDERED: ASPI81TA45 PO (14:24)
[2020-04-27] MEDS: MEROPENEM 1 GM in SODIUM CHLORIDE 0.9% 100 ML IV SCH ×2 (14:24→22:53)
[2020-04-27] MEDS ORDERED: GLUC1CAP48 PO (14:24)
[2020-04-27] MEDS ORDERED: OXYB10TA26 PO (14:24)
[2020-04-27] MEDS: FENTANYL PF 2,500 MCG in SODIUM CHLORIDE 0.9% 200 ML IV PRN (15:11)
[2020-04-27] MEDS ORDERED: DEXTROSE 70% IV SCH (17:00)
[2020-04-27] MEDS ORDERED: FILTER, DISP 1.2 MICRON FOR TPN/PVN IV PRN (17:00)
[2020-04-27] MEDS ORDERED: SMOF TPN IV SCH (17:00)
[2020-04-27] MEDS ORDERED: FAT EMUL IV SCH (17:00)
[2020-04-27] MEDS ORDERED: [UNRECOGNIZED DRUG - OTHER] IV SCH (17:00)
[2020-04-27] MEDS ORDERED: AMINO ACID 10% IV SCH (17:00)
[2020-04-27] MEDS: FILTER 0.22 MICRON IV PRN (23:45)
[2020-04-28] MEDS: ACETAMINOPHEN 650 MG SUPP PR PRN ×2 (01:45→11:03)
[2020-04-28 04:55] LABS: MEAN CORPUSCULAR HEMOGLOBIN 31.4 pg (27.0-34.8); MEAN CORPUSCULAR HGB CONC 32.4 g/dL (32.4-35.8); MEAN PLATELET VOLUME 11.4 fL (7.4-10.4); PLATELET COUNT 251 x10^3/uL (130-400); RED BLOOD COUNT 2.34 x10^6/uL (3.82-5.3); RED CELL DISTRIBUTION WIDTH 16.5 % (9.6-15.2)
[2020-04-28 04:56] LABS: ANION GAP 7 mmol/L (5-15); CALCIUM 7.3 mg/dL (8.5-10.1); CHLORIDE 102 mmol/L (98-107)
[2020-04-28 04:59] LABS: BILIRUBIN,TOTAL 1.5 mg/dL (0.2-1.0); CREATININE 2.58 mg/dL (0.55-1.02)
[2020-04-28] MEDS: MIDAZOLAM HCL 50 MG in SODIUM CHLORIDE 0.9% 40 ML IV PRN (05:02)
[2020-04-28 05:55] LABS: MD YES
[2020-04-28 05:57] LABS: BAND#(MANUAL) 2.26 x10^3/uL; BANDS%(MANUAL) 17 % (0-7); METAMYELOCYTES# (MANUAL) 0.27 x10^3/uL (0-0); METAMYELOCYTES% (MANUAL) 2 % (0-1); MONOS% (MANUAL) 6 % (2-9)
[2020-04-28 05:58] LABS: EOS#(MANUAL) 0.27 x10^3/uL (0.0-0.4); EOS% (MANUAL) 2 % (1-7); LYMPH#(MANUAL) 0.27 x10^3/uL (1-3.4); LYMPHS% (MANUAL) 2 % (22-44); SEG#(MANUAL) 9.44 x10^3/uL (1.8-6.8); SEGS% (MANUAL) 71 % (42-75)
[2020-04-28 06:00] LABS: ANISOCYTOSIS 1+; POLYCHROMASIA 1+
[2020-04-28 06:01] LABS: <PLATELET ESTIMATE> ADEQUATE; LARGE PLATELETS 1+
[2020-04-28] MEDS: FLUCONAZOLE 200 MG/100 ML 100 ML IV SCH (07:50)
[2020-04-28] MEDS: INSULIN LISPRO 100 UNITS/ML, PEN SQ-INSULIN SCH (09:00)
[2020-04-28] MEDS: HEPARIN 5,000 UNITS/ML, 1ML SQ SCH ×2 (09:16→17:34)
[2020-04-28] MEDS: PANTOPRAZOLE 40 MG IV IV SCH (09:16)
[2020-04-28] MEDS: SODIUM CHLORIDE FLUSH 10ML SYR IVF SCH ×2 (09:16→20:23)
[2020-04-28] MEDS: MEROPENEM 1 GM in SODIUM CHLORIDE 0.9% 100 ML IV SCH ×2 (11:03→23:04)
[2020-04-28] MEDS ORDERED: FENTANYL PF 250 MCG/5ML ONE (11:55)
[2020-04-28] MEDS ORDERED: MIDAZOLAM 1 MG/ML, 2ML ONE (11:55)
[2020-04-28] MEDS ORDERED: VASOPRESSIN 20 UNIT/ML, 1ML ONE (12:52)
[2020-04-28] MEDS ORDERED: ROCURONIUM 10 MG/ML,10ML ONE (12:52)
[2020-04-28] MEDS: AMIODARONE 450 MG in DEXTROSE 5% 241 ML IV PRN (14:59)
[2020-04-28] MEDS: FILTER 0.22 MICRON IV PRN (16:16)
[2020-04-28] MEDS ORDERED: FAT EMUL IV SCH (17:00)
[2020-04-28] MEDS ORDERED: AMINO ACID 10% IV SCH (17:00)
[2020-04-28] MEDS ORDERED: DEXTROSE 70% IV SCH (17:00)
[2020-04-28] MEDS ORDERED: [UNRECOGNIZED DRUG - OTHER] IV SCH (17:00)
[2020-04-28] MEDS ORDERED: SMOF TPN IV SCH (17:00)
[2020-04-28] MEDS: FENTANYL PF 2,500 MCG in SODIUM CHLORIDE 0.9% 200 ML IV PRN (22:09)
[2020-04-29] MEDS: HEPARIN 5,000 UNITS/ML, 1ML SQ SCH ×3 (00:14→16:51)
[2020-04-29 04:29] LABS: ANION GAP 10 mmol/L (5-15); CALCIUM 7.4 mg/dL (8.5-10.1); CHLORIDE 103 mmol/L (98-107); CREATININE 2.36 mg/dL (0.55-1.02)
[2020-04-29 04:30] LABS: BILIRUBIN,TOTAL 1.3 mg/dL (0.2-1.0)
[2020-04-29 04:51] LABS: MEAN CORPUSCULAR HEMOGLOBIN 30.4 pg (27.0-34.8); MEAN CORPUSCULAR HGB CONC 31.6 g/dL (32.4-35.8); MEAN PLATELET VOLUME 11.7 fL (7.4-10.4); PLATELET COUNT 281 x10^3/uL (130-400); RED BLOOD COUNT 2.45 x10^6/uL (3.82-5.3); RED CELL DISTRIBUTION WIDTH 16.7 % (9.6-15.2)
[2020-04-29 05:42] LABS: MD YES
[2020-04-29 05:44] LABS: <PLATELET ESTIMATE> ADEQUATE; ANISOCYTOSIS 1+; BAND#(MANUAL) 0.97 x10^3/uL; BANDS%(MANUAL) 6 % (0-7); LYMPH#(MANUAL) 1.77 x10^3/uL (1-3.4); LYMPHS% (MANUAL) 11 % (22-44); METAMYELOCYTES# (MANUAL) 0.32 x10^3/uL (0-0); METAMYELOCYTES% (MANUAL) 2 % (0-1); MONOS#(MANUAL) 0.64 x10^3/uL (0.3-2.7); MONOS% (MANUAL) 4 % (2-9); MYELOCYTES# (MANUAL) 0.48 x10^3/uL (0-0); MYELOCYTES% (MANUAL) 3 % (0-0); POLYCHROMASIA 1+; SEG#(MANUAL) 11.91 x10^3/uL (1.8-6.8); SEGS% (MANUAL) 74 % (42-75)
[2020-04-29 05:45] LABS: LARGE PLATELETS 1+
[2020-04-29] MEDS: AMIODARONE 450 MG in DEXTROSE 5% 241 ML IV PRN ×2 (06:36→22:09)
[2020-04-29] MEDS: FLUCONAZOLE 200 MG/100 ML 100 ML IV SCH (08:00)
[2020-04-29] MEDS: INSULIN LISPRO 100 UNITS/ML, PEN SQ-INSULIN SCH (08:59)
[2020-04-29] MEDS: PANTOPRAZOLE 40 MG IV IV SCH (09:24)
[2020-04-29] MEDS: SODIUM CHLORIDE FLUSH 10ML SYR IVF SCH ×2 (09:24→21:12)
[2020-04-29] MEDS: MEROPENEM 1 GM in SODIUM CHLORIDE 0.9% 100 ML IV SCH ×2 (11:34→22:45)
[2020-04-29] MEDS: ACETAMINOPHEN 650 MG SUPP PR PRN (13:13)
[2020-04-29] MEDS: ALBUMIN HUMAN 25% 100 ML IV PRN (15:26)
[2020-04-29] MEDS: FILTER, DISP 1.2 MICRON FOR TPN/PVN IV PRN (16:53)
[2020-04-29] MEDS ORDERED: FAT EMUL IV SCH (17:00)
[2020-04-29] MEDS ORDERED: SMOF TPN IV SCH (17:00)
[2020-04-29] MEDS ORDERED: AMINO ACID 10% IV SCH (17:00)
[2020-04-29] MEDS ORDERED: [UNRECOGNIZED DRUG - OTHER] IV SCH (17:00)
[2020-04-29] MEDS ORDERED: DEXTROSE 70% IV SCH (17:00)
[2020-04-30] MEDS: HEPARIN 5,000 UNITS/ML, 1ML SQ SCH ×3 (00:59→16:19)
[2020-04-30 04:49] LABS: MEAN CORPUSCULAR HEMOGLOBIN 31.2 pg (27.0-34.8); MEAN CORPUSCULAR HGB CONC 32.8 g/dL (32.4-35.8); MEAN PLATELET VOLUME 11.2 fL (7.4-10.4); PLATELET COUNT 256 x10^3/uL (130-400); RED BLOOD COUNT 2.09 x10^6/uL (3.82-5.3); RED CELL DISTRIBUTION WIDTH 16.6 % (9.6-15.2)
[2020-04-30 04:59] LABS: ANION GAP 8 mmol/L (5-15); CALCIUM 7.7 mg/dL (8.5-10.1); CHLORIDE 103 mmol/L (98-107)
[2020-04-30 05:00] LABS: CREATININE 2.22 mg/dL (0.55-1.02)
[2020-04-30 05:02] LABS: BILIRUBIN,TOTAL 1.4 mg/dL (0.2-1.0)
[2020-04-30 05:47] LABS: MD YES
[2020-04-30 05:49] LABS: ANISOCYTOSIS 1+; BAND#(MANUAL) 1.67 x10^3/uL; BANDS%(MANUAL) 14 % (0-7); LYMPH#(MANUAL) 1.31 x10^3/uL (1-3.4); LYMPHS% (MANUAL) 11 % (22-44); METAMYELOCYTES# (MANUAL) 0.24 x10^3/uL (0-0); METAMYELOCYTES% (MANUAL) 2 % (0-1); MONOS#(MANUAL) 0.12 x10^3/uL (0.3-2.7); MONOS% (MANUAL) 1 % (2-9); MYELOCYTES# (MANUAL) 0.71 x10^3/uL (0-0); MYELOCYTES% (MANUAL) 6 % (0-0); POLYCHROMASIA 1+; SEG#(MANUAL) 7.85 x10^3/uL (1.8-6.8); SEGS% (MANUAL) 66 % (42-75)
[2020-04-30 05:50] LABS: <PLATELET ESTIMATE> ADEQUATE; LARGE PLATELETS 1+; TOXIC GRAN 1+
[2020-04-30] MEDS: FLUCONAZOLE 200 MG/100 ML 100 ML IV SCH (07:39)
[2020-04-30 08:43] VITALS: BP 103/48
[2020-04-30] MEDS: PANTOPRAZOLE 40 MG IV IV SCH (08:50)
[2020-04-30] MEDS: SODIUM CHLORIDE FLUSH 10ML SYR IVF SCH ×2 (08:51→21:00)
[2020-04-30] MEDS: INSULIN LISPRO 100 UNITS/ML, PEN SQ-INSULIN SCH (08:54)
[2020-04-30 09:02] VITALS: BP 98/44
[2020-04-30] MEDS: MEROPENEM 1 GM in SODIUM CHLORIDE 0.9% 100 ML IV SCH ×2 (10:39→22:25)
[2020-04-30 10:59] VITALS: BP 116/54
[2020-04-30] MEDS ORDERED: FENTANYL PF 250 MCG/5ML ONE (11:58)
[2020-04-30] MEDS ORDERED: ROCURONIUM 10MG/ML,5ML ONE (12:11)
[2020-04-30] MEDS: FILTER, DISP 1.2 MICRON FOR TPN/PVN IV PRN (16:45)
[2020-04-30] MEDS ORDERED: DEXTROSE 70% IV SCH (17:00)
[2020-04-30] MEDS ORDERED: SMOF TPN IV SCH (17:00)
[2020-04-30] MEDS ORDERED: [UNRECOGNIZED DRUG - OTHER] IV SCH (17:00)
[2020-04-30] MEDS ORDERED: FAT EMUL IV SCH (17:00)
[2020-04-30] MEDS ORDERED: AMINO ACID 10% IV SCH (17:00)
[2020-04-30] MEDS: AMIODARONE 450 MG in DEXTROSE 5% 241 ML IV PRN (17:02)
[2020-04-30] MEDS: FILTER 0.22 MICRON IV PRN (17:02)
[2020-05-01] MEDS: HEPARIN 5,000 UNITS/ML, 1ML SQ SCH ×3 (00:55→17:22)
[2020-05-01 03:43] LABS: MEAN CORPUSCULAR HEMOGLOBIN 30.8 pg (27.0-34.8); MEAN CORPUSCULAR HGB CONC 32.7 g/dL (32.4-35.8); MEAN PLATELET VOLUME 11.3 fL (7.4-10.4); PLATELET COUNT 245 x10^3/uL (130-400); RED BLOOD COUNT 2.35 x10^6/uL (3.82-5.3); RED CELL DISTRIBUTION WIDTH 16.1 % (9.6-15.2)
[2020-05-01 03:49] LABS: ALBUMIN 0.9 g/dL (3.4-5.0); ANION GAP 6 mmol/L (5-15); CALCIUM 7.5 mg/dL (8.5-10.1); CHLORIDE 107 mmol/L (98-107)
[2020-05-01 03:53] LABS: ALANINE AMINOTRANSFERASE 22 U/L (12-78); ALKALINE PHOSPHATASE 269 U/L (45-117); BILIRUBIN,TOTAL 1.2 mg/dL (0.2-1.0); CREATININE 2.84 mg/dL (0.55-1.02); PREALBUMIN 4.6 mg/dL (20.0-40.0); TOTAL PROTEIN 4.8 g/dL (6.4-8.2)
[2020-05-01 04:17] LABS: MD YES
[2020-05-01 04:18] LABS: ANISOCYTOSIS 1+; BAND#(MANUAL) 0.76 x10^3/uL; BANDS%(MANUAL) 7 % (0-7); BASOS#(MANUAL) 0.11 x10^3/uL (0-0.1); BASOS% (MANUAL) 1 % (0-1); EOS#(MANUAL) 0.11 x10^3/uL (0.0-0.4); EOS% (MANUAL) 1 % (1-7); LYMPH#(MANUAL) 0.32 x10^3/uL (1-3.4); LYMPHS% (MANUAL) 3 % (22-44); METAMYELOCYTES# (MANUAL) 0.22 x10^3/uL (0-0); METAMYELOCYTES% (MANUAL) 2 % (0-1); MONOS#(MANUAL) 0.22 x10^3/uL (0.3-2.7); MONOS% (MANUAL) 2 % (2-9); MYELOCYTES# (MANUAL) 0.32 x10^3/uL (0-0); MYELOCYTES% (MANUAL) 3 % (0-0); POLYCHROMASIA 1+; SEG#(MANUAL) 8.75 x10^3/uL (1.8-6.8); SEGS% (MANUAL) 81 % (42-75)
[2020-05-01 04:19] LABS: <PLATELET ESTIMATE> ADEQUATE; <PLT MORPHOLOGY> NORMAL PLT MORPH; LARGE PLATELETS 1+; TOXIC GRAN 1+
[2020-05-01 04:20] LABS: OVALOCYTES 1+
[2020-05-01] MEDS: AMIODARONE 450 MG in DEXTROSE 5% 241 ML IV PRN ×2 (06:53→23:46)
[2020-05-01] MEDS: FENTANYL PF 2,500 MCG in SODIUM CHLORIDE 0.9% 200 ML IV PRN (06:54)
[2020-05-01] MEDS: FLUCONAZOLE 200 MG/100 ML 100 ML IV SCH (08:46)
[2020-05-01] MEDS: SODIUM CHLORIDE FLUSH 10ML SYR IVF SCH ×2 (08:57→20:23)
[2020-05-01] MEDS: PANTOPRAZOLE 40 MG IV IV SCH (08:57)
[2020-05-01] MEDS: INSULIN LISPRO 100 UNITS/ML, PEN SQ-INSULIN SCH (09:01)
[2020-05-01] MEDS: MEROPENEM 1 GM in SODIUM CHLORIDE 0.9% 100 ML IV SCH (12:56)
[2020-05-01] MEDS ORDERED: AMINO ACID 10% IV SCH (17:00)
[2020-05-01] MEDS ORDERED: DEXTROSE 70% IV SCH (17:00)
[2020-05-01] MEDS ORDERED: FAT EMUL IV SCH (17:00)
[2020-05-01] MEDS ORDERED: [UNRECOGNIZED DRUG - OTHER] IV SCH (17:00)
[2020-05-01] MEDS ORDERED: SMOF TPN IV SCH (17:00)
[2020-05-01] MEDS: FILTER, DISP 1.2 MICRON FOR TPN/PVN IV PRN (17:26)
[2020-05-02] MEDS: HEPARIN 5,000 UNITS/ML, 1ML SQ SCH ×3 (00:29→17:11)
[2020-05-02] MEDS: MEROPENEM 1 GM in SODIUM CHLORIDE 0.9% 100 ML IV SCH ×2 (00:32→12:31)
[2020-05-02 05:57] LABS: MEAN CORPUSCULAR HEMOGLOBIN 30.9 pg (27.0-34.8); MEAN CORPUSCULAR HGB CONC 33.2 g/dL (32.4-35.8); MEAN PLATELET VOLUME 11.4 fL (7.4-10.4); PLATELET COUNT 268 x10^3/uL (130-400); RED BLOOD COUNT 2.45 x10^6/uL (3.82-5.3); RED CELL DISTRIBUTION WIDTH 16.2 % (9.6-15.2)
[2020-05-02 06:03] LABS: ANION GAP 10 mmol/L (5-15); CALCIUM 7.6 mg/dL (8.5-10.1); CHLORIDE 102 mmol/L (98-107); CREATININE 2.53 mg/dL (0.55-1.02)
[2020-05-02 06:08] LABS: BILIRUBIN,TOTAL 1.3 mg/dL (0.2-1.0)
[2020-05-02 06:30] LABS: MD YES
[2020-05-02 06:33] LABS: ANISOCYTOSIS 1+; BAND#(MANUAL) 1.48 x10^3/uL; BANDS%(MANUAL) 14 % (0-7); LYMPH#(MANUAL) 0.74 x10^3/uL (1-3.4); LYMPHS% (MANUAL) 7 % (22-44); METAMYELOCYTES# (MANUAL) 0.32 x10^3/uL (0-0); METAMYELOCYTES% (MANUAL) 3 % (0-1); MONOS#(MANUAL) 0.32 x10^3/uL (0.3-2.7); MONOS% (MANUAL) 3 % (2-9); POLYCHROMASIA 1+; REACTIVE LYMPHS # (MANUAL) 0.11 x10^3/uL (0-0); REACTIVE LYMPHS % (MANUAL) 1 % (0-0); SEG#(MANUAL) 7.63 x10^3/uL (1.8-6.8); SEGS% (MANUAL) 72 % (42-75); TOXIC GRAN 1+
[2020-05-02 06:34] LABS: <PLATELET ESTIMATE> ADEQUATE; LARGE PLATELETS 1+
[2020-05-02] MEDS: FLUCONAZOLE 200 MG/100 ML 100 ML IV SCH (08:37)
[2020-05-02] MEDS: SODIUM CHLORIDE FLUSH 10ML SYR IVF SCH ×2 (08:37→20:15)
[2020-05-02] MEDS: PANTOPRAZOLE 40 MG IV IV SCH (08:37)
[2020-05-02] MEDS: INSULIN LISPRO 100 UNITS/ML, PEN SQ-INSULIN SCH (08:37)
[2020-05-02] MEDS ORDERED: ROCURONIUM 10 MG/ML,10ML ONE (09:03)
[2020-05-02] MEDS ORDERED: FENTANYL PF 250 MCG/5ML ONE (09:24)
[2020-05-02] MEDS: AMIODARONE 450 MG in DEXTROSE 5% 241 ML IV PRN (15:53)
[2020-05-02] MEDS: ACETAMINOPHEN 650 MG SUPP PR PRN (15:53)
[2020-05-02] MEDS ORDERED: FAT EMUL IV SCH (17:00)
[2020-05-02] MEDS ORDERED: AMINO ACID 10% IV SCH (17:00)
[2020-05-02] MEDS ORDERED: SMOF TPN IV SCH (17:00)
[2020-05-02] MEDS ORDERED: [UNRECOGNIZED DRUG - OTHER] IV SCH (17:00)
[2020-05-02] MEDS ORDERED: DEXTROSE 70% IV SCH (17:00)
[2020-05-02] MEDS: FILTER, DISP 1.2 MICRON FOR TPN/PVN IV PRN (17:11)
[2020-05-03] MEDS: MEROPENEM 1 GM in SODIUM CHLORIDE 0.9% 100 ML IV SCH ×2 (00:54→12:51)
[2020-05-03] MEDS: HEPARIN 5,000 UNITS/ML, 1ML SQ SCH ×3 (00:54→16:20)
[2020-05-03 05:27] LABS: ANION GAP 8 mmol/L (5-15); CALCIUM 7.6 mg/dL (8.5-10.1); CHLORIDE 103 mmol/L (98-107); CREATININE 2.13 mg/dL (0.55-1.02)
[2020-05-03 05:28] LABS: BILIRUBIN,TOTAL 1.1 mg/dL (0.2-1.0)
[2020-05-03 05:29] LABS: MEAN CORPUSCULAR HEMOGLOBIN 30.7 pg (27.0-34.8); MEAN CORPUSCULAR HGB CONC 32.9 g/dL (32.4-35.8); MEAN PLATELET VOLUME 11.6 fL (7.4-10.4); PLATELET COUNT 269 x10^3/uL (130-400); RED CELL DISTRIBUTION WIDTH 16.2 % (9.6-15.2)
[2020-05-03 06:15] LABS: MD YES
[2020-05-03 06:17] LABS: ANISOCYTOSIS 1+; BAND#(MANUAL) 1.29 x10^3/uL; BANDS%(MANUAL) 14 % (0-7); EOS#(MANUAL) 0.09 x10^3/uL (0.0-0.4); EOS% (MANUAL) 1 % (1-7); LYMPH#(MANUAL) 0.28 x10^3/uL (1-3.4); LYMPHS% (MANUAL) 3 % (22-44); METAMYELOCYTES# (MANUAL) 0.55 x10^3/uL (0-0); METAMYELOCYTES% (MANUAL) 6 % (0-1); MONOS#(MANUAL) 0.83 x10^3/uL (0.3-2.7); MONOS% (MANUAL) 9 % (2-9); SEG#(MANUAL) 6.16 x10^3/uL (1.8-6.8); SEGS% (MANUAL) 67 % (42-75)
[2020-05-03 06:18] LABS: <PLATELET ESTIMATE> ADEQUATE; <PLT MORPHOLOGY> NORMAL PLT MORPH; POLYCHROMASIA 1+; TOXIC GRAN 1+
[2020-05-03] MEDS: AMIODARONE 450 MG in DEXTROSE 5% 241 ML IV PRN ×2 (06:46→22:29)
[2020-05-03] MEDS: FLUCONAZOLE 200 MG/100 ML 100 ML IV SCH (09:33)
[2020-05-03] MEDS: INSULIN LISPRO 100 UNITS/ML, PEN SQ-INSULIN SCH (09:34)
[2020-05-03] MEDS: SODIUM CHLORIDE FLUSH 10ML SYR IVF SCH ×2 (09:35→19:29)
[2020-05-03] MEDS: PANTOPRAZOLE 40 MG IV IV SCH (09:45)
[2020-05-03] MEDS: FENTANYL PF 2,500 MCG in SODIUM CHLORIDE 0.9% 200 ML IV PRN (11:45)
[2020-05-03] MEDS ORDERED: AMINO ACID 10% IV SCH (17:00)
[2020-05-03] MEDS ORDERED: FILTER, DISP 1.2 MICRON FOR TPN/PVN IV PRN (17:00)
[2020-05-03] MEDS ORDERED: [UNRECOGNIZED DRUG - OTHER] IV SCH (17:00)
[2020-05-03] MEDS ORDERED: SMOF TPN IV SCH (17:00)
[2020-05-03] MEDS ORDERED: FAT EMUL IV SCH (17:00)
[2020-05-03] MEDS ORDERED: DEXTROSE 70% IV SCH (17:00)
[2020-05-04] MEDS: HEPARIN 5,000 UNITS/ML, 1ML SQ SCH ×3 (00:31→17:43)
[2020-05-04] MEDS: MEROPENEM 1 GM in SODIUM CHLORIDE 0.9% 100 ML IV SCH ×2 (01:10→12:53)
[2020-05-04 05:02] LABS: MEAN CORPUSCULAR HEMOGLOBIN 30.5 pg (27.0-34.8); MEAN CORPUSCULAR HGB CONC 32.8 g/dL (32.4-35.8); MEAN PLATELET VOLUME 11.7 fL (7.4-10.4); PLATELET COUNT 268 x10^3/uL (130-400); RED BLOOD COUNT 2.47 x10^6/uL (3.82-5.3); RED CELL DISTRIBUTION WIDTH 15.8 % (9.6-15.2)
[2020-05-04 05:37] LABS: ANION GAP 11 mmol/L (5-15); CALCIUM 7.9 mg/dL (8.5-10.1); CHLORIDE 102 mmol/L (98-107); CREATININE 2.94 mg/dL (0.55-1.02)
[2020-05-04 05:42] LABS: MD YES
[2020-05-04 05:44] LABS: BAND#(MANUAL) 0.83 x10^3/uL; BANDS%(MANUAL) 9 % (0-7); EOS#(MANUAL) 0.28 x10^3/uL (0.0-0.4); EOS% (MANUAL) 3 % (1-7); LYMPH#(MANUAL) 0.64 x10^3/uL (1-3.4); LYMPHS% (MANUAL) 7 % (22-44); METAMYELOCYTES# (MANUAL) 0.09 x10^3/uL (0-0); METAMYELOCYTES% (MANUAL) 1 % (0-1); MONOS#(MANUAL) 0.46 x10^3/uL (0.3-2.7); MONOS% (MANUAL) 5 % (2-9); MYELOCYTES# (MANUAL) 0.09 x10^3/uL (0-0); MYELOCYTES% (MANUAL) 1 % (0-0); SEG#(MANUAL) 6.81 x10^3/uL (1.8-6.8); SEGS% (MANUAL) 74 % (42-75)
[2020-05-04 05:45] LABS: ANISOCYTOSIS 1+; POLYCHROMASIA 1+
[2020-05-04 05:46] LABS: <PLATELET ESTIMATE> ADEQUATE; LARGE PLATELETS 1+
[2020-05-04] MEDS: INSULIN LISPRO 100 UNITS/ML, PEN SQ-INSULIN SCH (09:00)
[2020-05-04] MEDS: SODIUM CHLORIDE FLUSH 10ML SYR IVF SCH ×2 (09:45→21:45)
[2020-05-04] MEDS: FLUCONAZOLE 200 MG/100 ML 100 ML IV SCH (09:45)
[2020-05-04] MEDS: PANTOPRAZOLE 40 MG IV IV SCH (09:45)
[2020-05-04] MEDS: AMIODARONE 450 MG in DEXTROSE 5% 241 ML IV PRN (12:49)
[2020-05-04] MEDS: FILTER 0.22 MICRON IV PRN (12:57)
[2020-05-04] MEDS ORDERED: DEXTROSE 70% IV SCH (17:00)
[2020-05-04] MEDS ORDERED: AMINO ACID 10% IV SCH (17:00)
[2020-05-04] MEDS ORDERED: SMOF TPN IV SCH (17:00)
[2020-05-04] MEDS ORDERED: [UNRECOGNIZED DRUG - OTHER] IV SCH (17:00)
[2020-05-04] MEDS ORDERED: FILTER, DISP 1.2 MICRON FOR TPN/PVN IV PRN (17:00)
[2020-05-04] MEDS ORDERED: FAT EMUL IV SCH (17:00)
[2020-05-05] MEDS: HEPARIN 5,000 UNITS/ML, 1ML SQ SCH ×3 (00:16→16:30)
[2020-05-05] MEDS: MEROPENEM 1 GM in SODIUM CHLORIDE 0.9% 100 ML IV SCH ×2 (01:20→13:10)
[2020-05-05] MEDS: AMIODARONE 450 MG in DEXTROSE 5% 241 ML IV PRN ×2 (05:08→18:16)
[2020-05-05] MEDS: FILTER 0.22 MICRON IV PRN (05:08)
[2020-05-05 05:20] LABS: MEAN CORPUSCULAR HEMOGLOBIN 30.9 pg (27.0-34.8); MEAN CORPUSCULAR HGB CONC 33.2 g/dL (32.4-35.8); MEAN PLATELET VOLUME 11.8 fL (7.4-10.4); PLATELET COUNT 280 x10^3/uL (130-400); RED BLOOD COUNT 2.46 x10^6/uL (3.82-5.3)
[2020-05-05 05:32] LABS: ANION GAP 8 mmol/L (5-15); CALCIUM 7.9 mg/dL (8.5-10.1); CHLORIDE 103 mmol/L (98-107)
[2020-05-05 05:35] LABS: CREATININE 2.17 mg/dL (0.55-1.02)
[2020-05-05 05:40] LABS: BILIRUBIN, DIRECT 0.6 mg/dL (0.1-0.2); BILIRUBIN,INDIRECT 0.3 mg/dL (0.0-2.0); BILIRUBIN,TOTAL 0.9 mg/dL (0.2-1.0); TOTAL PROTEIN 5.6 g/dL (6.4-8.2)
[2020-05-05 06:32] LABS: MD YES
[2020-05-05 06:33] LABS: BAND#(MANUAL) 0.63 x10^3/uL; BANDS%(MANUAL) 7 % (0-7); EOS#(MANUAL) 0.18 x10^3/uL (0.0-0.4); EOS% (MANUAL) 2 % (1-7); LYMPH#(MANUAL) 0.36 x10^3/uL (1-3.4); LYMPHS% (MANUAL) 4 % (22-44); METAMYELOCYTES# (MANUAL) 0.09 x10^3/uL (0-0); METAMYELOCYTES% (MANUAL) 1 % (0-1); MONOS#(MANUAL) 0.36 x10^3/uL (0.3-2.7); MONOS% (MANUAL) 4 % (2-9); MYELOCYTES# (MANUAL) 0.18 x10^3/uL (0-0); MYELOCYTES% (MANUAL) 2 % (0-0); SEGS% (MANUAL) 80 % (42-75)
[2020-05-05 06:34] LABS: ANISOCYTOSIS 1+; POLYCHROMASIA 1+
[2020-05-05 06:35] LABS: <PLATELET ESTIMATE> ADEQUATE; <PLT MORPHOLOGY> NORMAL PLT MORPH; TOXIC GRAN 1+
[2020-05-05] MEDS: INSULIN LISPRO 100 UNITS/ML, PEN SQ-INSULIN SCH (09:00)
[2020-05-05] MEDS: PANTOPRAZOLE 40 MG IV IV SCH (09:20)
[2020-05-05] MEDS: SODIUM CHLORIDE FLUSH 10ML SYR IVF SCH ×2 (09:20→20:53)
[2020-05-05] MEDS: FLUCONAZOLE 200 MG/100 ML 100 ML IV SCH (09:20)
[2020-05-05] MEDS: FENTANYL PF 2,500 MCG in SODIUM CHLORIDE 0.9% 200 ML IV PRN (11:16)
[2020-05-05] MEDS ORDERED: DEXTROSE 70% IV SCH ×2 (12:00→17:00)
[2020-05-05] MEDS ORDERED: FAT EMUL IV SCH ×2 (12:00→17:00)
[2020-05-05] MEDS ORDERED: AMINO ACID 10% IV SCH ×2 (12:00→17:00)
[2020-05-05] MEDS ORDERED: SMOF TPN IV SCH ×2 (12:00→17:00)
[2020-05-05] MEDS ORDERED: [UNRECOGNIZED DRUG - OTHER] IV SCH ×2 (12:00→17:00)
[2020-05-05] MEDS ORDERED: MIDAZOLAM 1 MG/ML, 2ML ONE (14:12)
[2020-05-05] MEDS ORDERED: FENTANYL PF 250 MCG/5ML ONE (14:12)
[2020-05-05] MEDS ORDERED: NEOSTIGMINE 1 MG/ML, 10ML ONE (15:01)
[2020-05-05] MEDS ORDERED: PROPOFOL 10 MG/ML, 20ML ONE (15:01)
[2020-05-05] MEDS ORDERED: ONDANSETRON 2MG/ML, 2ML ONE (15:01)
[2020-05-05] MEDS ORDERED: CEFAZOLIN 1,000 MG ONE (15:01)
[2020-05-05] MEDS ORDERED: ROCURONIUM 10MG/ML,5ML ONE (15:01)
[2020-05-05] MEDS ORDERED: DEXAMETHASONE 4 MG/ML, 1ML ONE (15:01)
[2020-05-05] MEDS ORDERED: SUCCINYLCHOLINE 20 MG/ML, 10ML ONE (15:01)
[2020-05-05] MEDS ORDERED: GLYCOPYRROLATE 0.2MG/1ML, 5ML ONE (15:01)
[2020-05-05] MEDS ORDERED: THROMBIN 20,000 UNIT VIAL TP ONE (15:47)
[2020-05-05] MEDS ORDERED: FILTER, DISP 1.2 MICRON FOR TPN/PVN IV PRN (17:00)
[2020-05-05] MEDS ORDERED: MICAFUNGIN 100 MG in SODIUM CHLORIDE 0.9% 100 ML IV SCH (17:00)
[2020-05-05] MEDS: PIPERACILLIN/TAZO/PMX 2.25GM 50 ML IVPB SCH (18:00)
[2020-05-06] MEDS: HEPARIN 5,000 UNITS/ML, 1ML SQ SCH ×2 (01:23→08:30)
[2020-05-06] MEDS: PIPERACILLIN/TAZO/PMX 2.25GM 50 ML IVPB SCH ×2 (01:33→08:49)
[2020-05-06 03:41] LABS: MEAN CORPUSCULAR HEMOGLOBIN 30.5 pg (27.0-34.8); MEAN CORPUSCULAR HGB CONC 33.5 g/dL (32.4-35.8); MEAN PLATELET VOLUME 12.1 fL (7.4-10.4); PLATELET COUNT 251 x10^3/uL (130-400); RED BLOOD COUNT 3.06 x10^6/uL (3.82-5.3); RED CELL DISTRIBUTION WIDTH 15.8 % (9.6-15.2)
[2020-05-06 03:47] LABS: ANION GAP 11 mmol/L (5-15); CALCIUM 7.6 mg/dL (8.5-10.1); CHLORIDE 105 mmol/L (98-107); CREATININE 2.67 mg/dL (0.55-1.02)
[2020-05-06 04:51] LABS: MD YES
[2020-05-06 04:54] LABS: BAND#(MANUAL) 2.37 x10^3/uL; BANDS%(MANUAL) 11 % (0-7); LYMPH#(MANUAL) 1.29 x10^3/uL (1-3.4); LYMPHS% (MANUAL) 6 % (22-44); METAMYELOCYTES# (MANUAL) 1.29 x10^3/uL (0-0); METAMYELOCYTES% (MANUAL) 6 % (0-1); MONOS#(MANUAL) 1.08 x10^3/uL (0.3-2.7); MONOS% (MANUAL) 5 % (2-9); MYELOCYTES# (MANUAL) 2.58 x10^3/uL (0-0); MYELOCYTES% (MANUAL) 12 % (0-0); SEGS% (MANUAL) 60 % (42-75)
[2020-05-06 04:56] LABS: ANISOCYTOSIS 1+
[2020-05-06 04:57] LABS: <PLATELET ESTIMATE> ADEQUATE; LARGE PLATELETS 1+; OVALOCYTES 1+
[2020-05-06 07:17] LABS: BILIRUBIN,TOTAL 2.8 mg/dL (0.2-1.0)
[2020-05-06] MEDS: INSULIN LISPRO 100 UNITS/ML, PEN SQ-INSULIN SCH (08:37)
[2020-05-06] MEDS: SODIUM CHLORIDE FLUSH 10ML SYR IVF SCH (08:49)
[2020-05-06] MEDS: PANTOPRAZOLE 40 MG IV IV SCH (08:50)
[2020-05-06] MEDS: AMIODARONE 450 MG in DEXTROSE 5% 241 ML IV PRN (08:53)
[2020-05-06] MEDS: FILTER 0.22 MICRON IV PRN (08:54)
[2020-05-06] MEDS: FENTANYL PF 2,500 MCG in SODIUM CHLORIDE 0.9% 200 ML IV PRN ×2 (11:33→11:35)
[2020-05-06] MEDS ORDERED: LORazepam 2 MG/ML, 1ML IVPush PRN (12:00)
[2020-05-06] MEDS ORDERED: ATROPINE OPHTH SOLN 1%, 5ML PO PRN ×2 (12:00→13:00)
[2020-05-06] MEDS ORDERED: morphine SULFATE 10 MG/ML, 1ML IVPush PRN (12:30)
[2020-05-06] MEDS ORDERED: LORazepam 2 MG/ML, 1ML IV ONE ×2 (12:30→13:00)
[2020-05-06] MEDS ORDERED: MORPHINE SULFATE 4 MG/ML, 1ML IV ONE (12:30)
[2020-05-06] MEDS ORDERED: FENTANYL PF 100 MCG/2ML IV PRN (13:00)
[2020-05-06] MEDS ORDERED: LORazepam 2 MG/ML, 1ML IV PRN (13:00)
[2020-05-06] MEDS ORDERED: [UNRECOGNIZED DRUG - OTHER] IV SCH (17:00)
[2020-05-06] MEDS ORDERED: SMOF TPN IV SCH (17:00)
[2020-05-06] MEDS ORDERED: DEXTROSE 70% IV SCH (17:00)
[2020-05-06] MEDS ORDERED: FAT EMUL IV SCH (17:00)
[2020-05-06] MEDS ORDERED: AMINO ACID 10% IV SCH (17:00)
[2020-05-06] MEDS ORDERED: SODIUM CHLORIDE FLUSH 10ML SYR IVF SCH (21:00)
== END 2020-05-06 15:43 | disposition expired | DRG 710 ==
LOC: ED 21:12 → EDIP 04-07 00:14 → 3N 04-07 00:47 → CCU 04-07 21:54
PROVIDERS: ADMIT Family Medicine; ATTEND Hospitalist
PROC: B548ZZA Ultrasonography of Superior Vena Cava, Guidance (ICD-10-PCS; 2020-04-08)
PROC: 5A1955Z Respiratory Ventilation, Greater than 96 Consecutive Hours (ICD-10-PCS; 2020-04-08)
PROC: 0BH17EZ Insertion of Endotracheal Airway into Trachea, Via Natural or Artificial Opening (ICD-10-PCS; 2020-04-08)
PROC: 0BQT0ZZ Repair Diaphragm, Open Approach (ICD-10-PCS; 2020-04-08)
PROC: 0DH60UZ Insertion of Feeding Device into Stomach, Open Approach (ICD-10-PCS; 2020-04-08)
PROC: 02HV33Z Insertion of Infusion Device into Superior Vena Cava, Percutaneous Approach (ICD-10-PCS; principal; 2020-04-08 16:00)
PROC: 5A1D70Z Performance of Urinary Filtration, Intermittent, Less than 6 Hours Per Day (ICD-10-PCS; 2020-04-12)
PROC: 0D1L0Z4 Bypass Transverse Colon to Cutaneous, Open Approach (ICD-10-PCS; 2020-04-16)
PROC: 0DBL0ZZ Excision of Transverse Colon, Open Approach (ICD-10-PCS; 2020-04-16)
PROC: 0DW60UZ Revision of Feeding Device in Stomach, Open Approach (ICD-10-PCS; 2020-04-16)
PROC: 0FT40ZZ Resection of Gallbladder, Open Approach (ICD-10-PCS; 2020-04-18)
PROC: 30233N1 Transfusion of Nonautologous Red Blood Cells into Peripheral Vein, Percutaneous Approach (ICD-10-PCS; 2020-04-19)
PROC: 0DQ60ZZ Repair Stomach, Open Approach (ICD-10-PCS; 2020-04-21)
PROC: 0W9G0ZZ Drainage of Peritoneal Cavity, Open Approach (ICD-10-PCS; 2020-04-21)
PROC: 3E1M38Z Irrigation of Peritoneal Cavity using Irrigating Substance, Percutaneous Approach (ICD-10-PCS; 2020-04-23)
PROC: 0JD80ZZ Extraction of Abdomen Subcutaneous Tissue and Fascia, Open Approach (ICD-10-PCS; 2020-04-26)
PROC: 0F9G0ZZ Drainage of Pancreas, Open Approach (ICD-10-PCS; 2020-04-28)
PROC: 0F9G0ZZ Drainage of Pancreas, Open Approach (ICD-10-PCS; 2020-04-30)
PROC: 0WQF0ZZ Repair Abdominal Wall, Open Approach (ICD-10-PCS; 2020-05-02)
PROC: 0WBH0ZZ Excision of Retroperitoneum, Open Approach (ICD-10-PCS; 2020-05-02)
PROC: 0W9G0ZZ Drainage of Peritoneal Cavity, Open Approach (ICD-10-PCS; 2020-05-05)
PROC: 06Q Lower Veins, Repair (ICD-10-PCS; 2020-05-05)
PROC: 06Q Lower Veins, Repair (ICD-10-PCS; 2020-05-05)
PROC: 0F9G0ZZ Drainage of Pancreas, Open Approach (ICD-10-PCS; 2020-05-05)
DX: B37.7 Candidal sepsis (principal); K85.10 Biliary acute pancreatitis without necrosis or infection; N17.0 Acute kidney failure with tubular necrosis; Z20.828 Contact with and (suspected) exposure to other viral communicable diseases; R65.21 Severe sepsis with septic shock; J96.01 Acute respiratory failure with hypoxia; K44.0 Diaphragmatic hernia with obstruction, without gangrene; I47.1 Supraventricular tachycardia; B17.9 Acute viral hepatitis, unspecified; D62 Acute posthemorrhagic anemia; E66.9 Obesity, unspecified; B96.5 Pseudomonas (aeruginosa) (mallei) (pseudomallei) as the cause of diseases classified elsewhere; E78.5 Hyperlipidemia, unspecified; E83.39 Other disorders of phosphorus metabolism; E83.42 Hypomagnesemia; E83.51 Hypocalcemia; I10 Essential (primary) hypertension; E87.70 Fluid overload, unspecified; I48.91 Unspecified atrial fibrillation; I48.92 Unspecified atrial flutter; J18.9 Pneumonia, unspecified organism; J90 Pleural effusion, not elsewhere classified; K63.1 Perforation of intestine (nontraumatic); K65.0 Generalized (acute) peritonitis; K65.1 Peritoneal abscess; K72.90 Hepatic failure, unspecified without coma; K76.0 Fatty (change of) liver, not elsewhere classified; K80.20 Calculus of gallbladder without cholecystitis without obstruction; Z51.5 Encounter for palliative care; Z66 Do not resuscitate; Z90.49 Acquired absence of other specified parts of digestive tract; Z99.2 Dependence on renal dialysis; Z99.11 Dependence on respirator [ventilator] status; K44.9 Diaphragmatic hernia without obstruction or gangrene; R18.8 Other ascites; N87.9 Dysplasia of cervix uteri, unspecified; Z68.33 Body mass index [BMI] 33.0-33.9, adult; K91.71 Accidental puncture and laceration of a digestive system organ or structure during a digestive system procedure; Y83.8 Other surgical procedures as the cause of abnormal reaction of the patient, or of later complication, without mention of misadventure at the time of the procedure
CPT/HCPCS: J3490 ×2; 32557; 36415; 36556; 36600; 49405; 70450; 71045; 71250; 74018; 74176; 74177; 76700; 77001; 80048; 80053; 80061; 80076; 80162; 80202; 81001; 82150; 82247; 82248; 82330; 82533; 82803; 82947; 82962; 83605; 83690; 83735; 83986; 84100; 84132; 84134; 84157; 84295; 84478; 85014; 85025; 86705; 86706; 86850; 86900; 86923; 87040; 87070; 87075; 87077; 87081; 87086; 87106; 87186; 87205; 87340; 87635; 88304; 88307; 89051; 90935; 93005; 94002; 94003; 96361; 96374; 96375; 99291; B4087; C1729; C1894; G0378; J0153; J0610; J0690; J1100; J1170; J1644; J1815; J2185; J2248; J2250; J2405; J2543; J2704; J2710; J3010; J3370; J3475; J3480; J7060; J7070; J7120; P9047; Q9967; C1751; C1757; C1765; C1769; C9113; J0282; J0330; J0780; J1160; J1450; J1642; J2060; J2270; J2370; J3420; J7030; J7050; P9016